=== PATIENT | female | born 1950 | race Caucasian/White ===

== ENCOUNTER 2017-02-23 23:54 | Emergency (ER) | payer OTHER ==
[~2017-02-23] VITALS: Ht 170.2 cm; Wt 62.0 kg
[~2017-02-23 23:54] MED LIST: OMPR20CCR PO
[2017-02-24 00:05] VITALS: BP 130/73; PULSE 85; RESP 16; TEMP 97.6; O2SAT 100
[2017-02-24] MEDS ORDERED: ONDANSETRON HCL 4 MG/2 ML VIAL ONE (00:07)
[2017-02-24] MEDS ORDERED: SODIUM CHLOR 0.9% 1000 ML INJ 1,000 ML IV SCH (00:44)
[2017-02-24] MEDS ORDERED: PANTOPRAZOLE SODIUM 40 MG VIAL IVP ONE (00:45)
[2017-02-24] MEDS ORDERED: MORPHINE SULFATE 4 MG/ML INJ IV PUSH ONE (00:45)
[2017-02-24] MEDS ORDERED: METOCLOPRAMIDE HCL 10 MG/2 ML VIAL IV PUSH ONE (00:45)
[2017-02-24] MEDS ORDERED: diphenhydrAMINE HCL 50 MG/ML VIAL IV PUSH ONE (00:45)
--- NOTE | 2017-02-24 00:51 | PD ---
HPI Chief Complaint: Abdominal Pain Time Seen by Provider: 00:39 Travel History International Travel<30 days: No Contact w/Intl Traveler<30days: No Traveled to known affect area: No History of Present Illness HPI 66-year-old female complains of abdominal pain with severe nausea. Patient states that she has history of common bile duct obstruction that required ERCP done by Dr. villela and 2 years ago. Patient has been doing well since then. Patient states that she ate fried shrimp tonight and started having severe abdominal cramping and nausea. Patient denies any vomiting or diarrhea. Patient denies any fever chills. Patient denies any chest pain or shortness of breath. Patient states that abdominal cramping mostly localized on the upper abdomen. Patient denies any pain radiation. On a scale of 1-10 the pain is a 3. PFSH Past Medical History Cancer: No Cardiovascular Problems: No Diabetes: No Diminished Hearing: No Endocrine: No Glaucoma: No Genitourinary: No Hepatitis: No Hiatal Hernia: No Hypertension: No Immune Disorder: No Medical other: Yes (back problems) Musculoskeletal: Yes Neurologic: No Psychiatric: No Reproductive: No Respiratory: No Thyroid Disease: No Tetanus Vaccination: Unknown Influenza Vaccination: No Menopausal: Yes Past Surgical History Oral Surgery: Yes (wisdom teeth removed) Other Surgery: Yes Social History Alcohol Use: Yes (occ wine) Tobacco Use: No Substance Use: No Allergies-Medications (Allergen,Severity, Reaction): Coded Allergies: No Known Allergies (Unverified , 02/24/17) Reported Meds & Prescriptions Reported Meds & Active Scripts Active Reported Prilosec 20 Mg Cap (Omeprazole) 20 Mg Capcr 20 Mg PO DAILY Review of Systems General / Constitutional: No: Fever Eyes: No: Visual changes HENT: No: Headaches Cardiovascular: No: Chest Pain or Discomfort Respiratory: No: Shortness of Breath Gastrointestinal: Positive: Nausea, Abdominal Pain Genitourinary: No: Dysuria Musculoskeletal: No: Pain Skin: No Rash Neurologic: No: Weakness Psychiatric: No: Depression Endocrine: No: Polydipsia Hematologic/Lymphatic: No: Easy Bruising Physical Exam Narrative GENERAL: Well-nourished, well-developed patient. SKIN: Focused skin assessment warm/dry. HEAD: Normocephalic. EYES: No scleral icterus. No injection or drainage. NECK: Supple, trachea midline. No JVD or lymphadenopathy. CARDIOVASCULAR: Regular rate and rhythm without murmurs, gallops, or rubs. RESPIRATORY: Breath sounds equal bilaterally. No accessory muscle use. GASTROINTESTINAL: Abdomen soft, nondistended. Patient has mild diffuse tenderness over the upper abdomen, epigastric area. No rebound tenderness. No mass. MUSCULOSKELETAL: No cyanosis, or edema. BACK: Nontender without obvious deformity. No CVA tenderness. Neurologic exam normal. Data Data Last Documented VS Vital Signs Date Time Temp Pulse Resp B/P Pulse Ox O2 Delivery O2 Flow Rate FiO2 02/24/17 00:08 16 02/24/17 00:05 97.6 85 130/73 100 Orders Ondansetron Inj (Zofran Inj) (02/24/17 00:07) Complete Blood Count With Diff (02/24/17 00:44) Comprehensive Metabolic Panel (02/24/17 00:44) Lipase (02/24/17 00:44) Prothrombin Time / Inr (Pt) (02/24/17 00:44) Act Partial Throm Time (Ptt) (02/24/17 00:44) Urinalysis - C+S If Indicated (02/24/17 00:44) Ct Abd/Pel W Iv Contrast(Rout) (02/24/17 00:44) Iv Access Insert/Monitor (02/24/17 00:44) Ecg Monitoring (02/24/17 00:44) Oximetry (02/24/17 00:44) Morphine Inj (Morphine Inj) (02/24/17 00:45) Pantoprazole Inj (Protonix Inj) (02/24/17 00:45) Sodium Chlor 0.9% 1000 Ml Inj (Ns 1000 M (02/24/17 00:44) Metoclopramide Inj (Reglan Inj) (02/24/17 00:45) Diphenhydramine Inj (Benadryl Inj) (02/24/17 00:45) Iohexol 350 Inj (Omnipaque 350 Inj) (02/24/17 02:57) Labs Laboratory Tests Test 02/24/17 00:55 White Blood Count 7.2 TH/MM3 Red Blood Count 3.93 MIL/MM3 Hemoglobin 12.6 GM/DL Hematocrit 36.0 % Mean Corpuscular Volume 91.6 FL Mean Corpuscular Hemoglobin 32.1 PG Mean Corpuscular Hemoglobin 35.1 % Concent Red Cell Distribution Width 14.1 % Platelet Count 261 TH/MM3 Mean Platelet Volume 8.9 FL Neutrophils (%) (Auto) 52.5 % Lymphocytes (%) (Auto) 35.0 % Monocytes (%) (Auto) 11.5 % Eosinophils (%) (Auto) 0.6 % Basophils (%) (Auto) 0.4 % Neutrophils # (Auto) 3.8 TH/MM3 Lymphocytes # (Auto) 2.5 TH/MM3 Monocytes # (Auto) 0.8 TH/MM3 Eosinophils # (Auto) 0.0 TH/MM3 Basophils # (Auto) 0.0 TH/MM3 CBC Comment DIFF FINAL Differential Comment Prothrombin Time 10.7 SEC Prothromb Time International 1.0 RATIO Ratio Activated Partial 24.0 SEC Thromboplast Time Sodium Level 138 MEQ/L Potassium Level 3.2 MEQ/L Chloride Level 102 MEQ/L Carbon Dioxide Level 21.6 MEQ/L Anion Gap 14 MEQ/L Blood Urea Nitrogen 14 MG/DL Creatinine 0.85 MG/DL Estimat Glomerular Filtration 67 ML/MIN Rate Random Glucose 121 MG/DL Calcium Level 9.5 MG/DL Total Bilirubin 0.4 MG/DL Aspartate Amino Transf 120 U/L (AST/SGOT) Alanine Aminotransferase 70 U/L (ALT/SGPT) Alkaline Phosphatase 76 U/L Total Protein 7.1 GM/DL Albumin 4.2 GM/DL Lipase 117 U/L [facility] Medical Decision Making Medical Screen Exam Complete: Yes Emergency Medical Condition: Yes Interpretation(s) Last Impressions Abdomen/Pelvis CT 02/24/17 0044 Signed Impressions: Service Date/Time: Friday, February 24, 2017 02:53 - CONCLUSION: Extra hepatic biliary tree dilatation, unchanged. Unremarkable study. The appendix is normal. Mati Rod MD 3:40 AM. CBC within normal limit. Potassium 3.2. AST 120. ALT 70. Differential Diagnosis Differential diagnosis including gastritis, PUD, pink otitis, cholecystitis, colitis, UTI, pyelonephritis, nephrolithiasis. Narrative Course 66-year-old female with upper abdominal pain after eating a greasy meal. History of common bile duct obstruction that required ERCP in the past. Normal saline solution 1 25 cc an hour. Protonix 40 milligram IV. Zofran 4 mg IV. Reglan 10 mg IV. Benadryl 25 mg IV. Morphine 2 mg IV. Diagnosis Primary Impression: Abdominal pain Qualified Code: R10.9 - Abdominal pain, unspecified location Additional Impression: Gastroenteritis Patient Instructions: General Instructions Additional Instructions: Take medications as needed. Follow-up with personal physician and GI specialist. Return if worse. Med/Other Pt SpecificInfo: Prescription(s) given Scripts Promethazine (Phenergan)25 Mg Tab25 Mg PO Q6H PRN (Nausea/Vomiting) #10 TAB Ref 0 Prov:Mynor Rangel MD 02/24/17 Ondansetron Odt (Zofran Odt)4 Mg Tab4 Mg SL Q6HR PRN (Nausea/Vomiting) #10 TAB Prov:Mynor Rangel MD 02/24/17 Pantoprazole (Protonix)20 Mg Tab20 Mg PO DAILY #30 TAB Prov:Mynor Rangel MD 02/24/17 Disposition: 01 DISCHARGE HOME Condition: Stable Mynor Rangel MD Feb 24, 2017 00:51
[2017-02-24 01:03] LABS: AUTOMATED NEUTROPHIL # 3.8 TH/MM3 (1.8-7.7); BASOPHIL % 0.4 % (0.0-2.0); EOSINOPHIL % 0.6 % (0.0-4.0); HEMO FLAGS DIFF FINAL; LYMPHOCYTE # 2.5 TH/MM3 (1.0-4.8); MEAN CELL VOLUME 91.6 FL (80.0-100.0); MEAN CORPUSCULAR HEMOGLOBIN 32.1 PG (27.0-34.0); MEAN CORPUSCULAR HGB CONC 35.1 % (32.0-36.0); MONO % 11.5 % (0.0-8.0); NEUT % 52.5 % (16.0-70.0); PLATELET COUNT 261 TH/MM3 (150-450); RED BLOOD COUNT 3.93 MIL/MM3 (4.00-5.30); RED CELL DISTRIBUTION WIDTH 14.1 % (11.6-17.2); WHITE BLOOD COUNT 7.2 TH/MM3 (4.0-11.0)
[2017-02-24 01:16] LABS: PROTHROMBIN TIME - PATIENT 10.7 SEC (9.8-11.6)
[2017-02-24 01:35] LABS: ALKALINE PHOSPHATASE 76 U/L (45-117); TOTAL BILIRUBIN ADULT 0.4 MG/DL (0.2-1.0)
[2017-02-24 01:54] LABS: ALT (GPT) 70 U/L (10-53); ANION GAP 14 MEQ/L (5-15); AST (GOT) 120 U/L (15-37); BICARBONATE 21.6 MEQ/L (21.0-32.0); BLOOD UREA NITROGEN 14 MG/DL (7-18); CHLORIDE 102 MEQ/L (98-107); GLOMERULAR FILTRATION RATE 67 ML/MIN (>89); POTASSIUM 3.2 MEQ/L (3.5-5.1); SODIUM (NA) 138 MEQ/L (136-145)
[2017-02-24] MEDS ORDERED: IOHEXOL 350 MG/ML 10 ML VIAL (for RAD DIAG) IV ONE (02:57)
--- NOTE | 2017-02-24 03:25 | RADRPT ---
EXAM DATE/TIME: 02/24/2017 02:53 [facility] COMPARISON: CT ABDOMEN & PELVIS W CONTRAST, April 23, 2013, 6:57. INDICATIONS : Abdominal pain. IV CONTRAST: 96 cc Omnipaque 350 (iohexol) IV ORAL CONTRAST: No oral contrast ingested. RADIATION DOSE: 6.05 CTDIvol (mGy) MEDICAL HISTORY : Biliary duct blockage. Gallstones. SURGICAL HISTORY : None. ENCOUNTER: Initial ACUITY: 1 day PAIN SCALE: 3/10 LOCATION: Bilateral upper quadrant TECHNIQUE: Volumetric scanning of the abdomen and pelvis was performed. Using automated exposure control and ad justment of the mA and/or kV according to patient size, radiation dose was kept as low as reasonably achievable to obtain optimal diagnostic quality images. FINDINGS: LOWER LUNGS: The visualized lower lungs are clear. LIVER: Homogeneous density without lesion. There is continued dilatation of the extrahepatic biliary tree. No calcified gallstones. SPLEEN: Normal size without lesion. PANCREAS: Within normal limits. KIDNEYS: Normal in size and shape. There is no mass, stone or hydronephrosis. ADRENAL GLANDS: Within normal limits. VASCULAR: There is no aortic aneurysm. BOWEL/MESENTERY: The stomach, small bowel, and colon demonstrate no acute abnormality. There is no free intraperitone al air or fluid. ABDOMINAL WALL: Within normal limits. RETROPERITONEUM: There is no lymphadenopathy. BLADDER: No wall thickening or mass. REPRODUCTIVE: Within normal limits. INGUINAL: There is no lymphadenopathy or hernia. MUSCULOSKELETAL: Within normal limits for patient age. CONCLUSION: Extra hepatic biliary tree dilatation, unchanged. Unremarkable study. The appendix is normal. Mati Rod MD on February 24, 2017 at 3:23 Board Certified Radiologist. This report was verified electronically.
[2017-02-24] MEDS ORDERED: PANT20 PO (03:49)
[2017-02-24] MEDS ORDERED: PROM25TA5 PO (03:49)
[2017-02-24] MEDS ORDERED: ZOFR4TAB3 SL (03:49)
[2017-02-24 04:37] LABS: BACTERIA, URINE RARE /hpf; BLOOD, URINE NEG (NEG); COMMENT (UR) CULT NOT INDICATED; CULTURE IF INDICATED CULT NOT INDICATED; GLUCOSE,URINE NEG (NEG); KETONE, URINE 10 mg/dL (NEG); NITRITE,URINE NEG (NEG); SQUAMOUS EPITHELIAL CELL URINE <1 /hpf (0-5); URINE COLOR YELLOW (YELLW/STRAW)
== END 2017-02-24 05:08 | disposition home or self-care (01) ==
LOC: NEPC 23:54
DX: K52.9 Noninfective gastroenteritis and colitis, unspecified (principal)
CPT/HCPCS: 74177; 80053; 81001; 83690; 85025; 85610; 85730; 96374; 96375; 99284; C9113; J1200; J2270; J2405; J2765; J7030; Q9967

== ENCOUNTER 2017-04-01 17:05 | Emergency (ER) | payer MEDICARE, OTHER ==
[~2017-04-01] VITALS: Ht 165.1 cm; Wt 60.0 kg
[~2017-04-01 17:05] MED LIST changes: +PANT20 PO; +PROM25TA5 PO; +ZOFR4TAB3 SL
[2017-04-01 17:08] VITALS: BP 127/69; PULSE 88; RESP 24; TEMP 97.5; O2SAT 99
== END 2017-04-01 18:26 | disposition left against medical advice (07) ==
LOC: NED 17:05
DX: R10.9 Unspecified abdominal pain (principal); Z53.21 Procedure and treatment not carried out due to patient leaving prior to being seen by health care provider

== ENCOUNTER 2017-07-03 02:01 | Inpatient (IN) | payer MEDICARE ==
[~2017-07-03] VITALS: Ht 165.1 cm; Wt 56.0 kg
[2017-07-03] VITALS (11 sets, daily range): BP systolic 104–129; BP diastolic 59–67; PULSE 74–93; RESP 13–23; TEMP 96.9–98.6; O2SAT 98–100
[2017-07-03] MEDS ORDERED: HYDR-3516 PO (02:10)
[2017-07-03] MEDS ORDERED: SODIUM CHLOR 0.9% 1000 ML INJ 1,000 ML IV SCH (03:22)
--- NOTE | 2017-07-03 03:28 | PD ---
HPI Chief Complaint: Abdominal Pain Time Seen by Provider: 03:14 Travel History International Travel<30 days: No Contact w/Intl Traveler<30days: No Traveled to known affect area: No History of Present Illness HPI 66-year-old female complains of abdominal pain. Patient status post cholecystectomy a week ago. Patient has been doing well after surgery. Patient states that she was bending over and getting up and started having severe ripping pain on the right upper quadrant of the abdomen. Patient denies any pain radiation. Patient denies any nausea vomiting diarrhea. Patient denies any fever chills. Patient denies any dysuria or frequency. PFSH Past Medical History Cancer: No Cardiovascular Problems: No Diabetes: No Diminished Hearing: No Endocrine: No Glaucoma: No Genitourinary: No Hepatitis: No Hiatal Hernia: No Hypertension: No Immune Disorder: No Medical other: Yes (back problems) Musculoskeletal: Yes Neurologic: No Psychiatric: No Reproductive: No Respiratory: No Thyroid Disease: No Tetanus Vaccination: > 5 Years Influenza Vaccination: No Menopausal: Yes Past Surgical History Cholecystectomy: Yes Oral Surgery: Yes (wisdom teeth removed) Other Surgery: Yes Social History Alcohol Use: Yes (occ wine) Tobacco Use: No Substance Use: No Allergies-Medications (Allergen,Severity, Reaction): Coded Allergies: morphine (Verified Allergy, Severe, 07/03/17) HALLUCINATE Reported Meds & Prescriptions Reported Meds & Active Scripts Active Reported Hydrocodone-Acetaminophen 5-325 mg Tab 1 Tab PO Q4H PRN Review of Systems General / Constitutional: No: Fever Eyes: No: Visual changes HENT: No: Headaches Cardiovascular: No: Chest Pain or Discomfort Respiratory: No: Shortness of Breath Gastrointestinal: Positive: Abdominal Pain Genitourinary: No: Dysuria Musculoskeletal: No: Pain Skin: No Rash Neurologic: No: Weakness Psychiatric: No: Depression Endocrine: No: Polydipsia Hematologic/Lymphatic: No: Easy Bruising Physical Exam Narrative GENERAL: Well-nourished, well-developed patient. SKIN: Focused skin assessment warm/dry. HEAD: Normocephalic. EYES: No scleral icterus. No injection or drainage. NECK: Supple, trachea midline. No JVD or lymphadenopathy. CARDIOVASCULAR: Regular rate and rhythm without murmurs, gallops, or rubs. RESPIRATORY: Breath sounds equal bilaterally. No accessory muscle use. GASTROINTESTINAL: Abdomen soft, nondistended. Patient has moderate tenderness on palpation right upper quadrant and right mid abdomen area. No rebound tenderness. No mass. MUSCULOSKELETAL: No cyanosis, or edema. BACK: Nontender without obvious deformity. No CVA tenderness. Neurologic exam normal. Data Data Last Documented VS Vital Signs Date Time Temp Pulse Resp B/P (MAP) Pulse Ox O2 Delivery O2 Flow Rate FiO2 07/03/17 03:36 76 16 99 Room Air 07/03/17 02:07 97.8 07/03/17 02:03 118/61 (80) Orders Orders Complete Blood Count With Diff (07/03/17 03:22) Comprehensive Metabolic Panel (07/03/17 03:22) Lipase (07/03/17 03:22) Prothrombin Time / Inr (Pt) (07/03/17 03:22) Act Partial Throm Time (Ptt) (07/03/17 03:22) Urinalysis - C+S If Indicated (07/03/17 03:22) Ct Abd/Pel W Iv Contrast(Rout) (07/03/17 03:22) Iv Access Insert/Monitor (07/03/17 03:22) Ecg Monitoring (07/03/17 03:22) Oximetry (07/03/17 03:22) Ondansetron Inj (Zofran Inj) (07/03/17 03:30) Sodium Chlor 0.9% 1000 Ml Inj (Ns 1000 M (07/03/17 03:22) Hydromorphone Pf Inj (Dilaudid Pf Inj) (07/03/17 03:30) Iohexol 350 Inj (Omnipaque 350 Inj) (07/03/17 04:51) Labs Laboratory Tests Test 07/03/17 03:20 White Blood Count 23.2 TH/MM3 Red Blood Count 4.15 MIL/MM3 Hemoglobin 12.8 GM/DL Hematocrit 40.0 % Mean Corpuscular Volume 96.4 FL Mean Corpuscular Hemoglobin 30.9 PG Mean Corpuscular Hemoglobin Concent 32.0 % Red Cell Distribution Width 14.5 % Platelet Count 303 TH/MM3 Mean Platelet Volume 7.9 FL Neutrophils (%) (Auto) 89.7 % Lymphocytes (%) (Auto) 2.3 % Monocytes (%) (Auto) 7.9 % Eosinophils (%) (Auto) 0.0 % Basophils (%) (Auto) 0.1 % Neutrophils # (Auto) 20.8 TH/MM3 Lymphocytes # (Auto) 0.5 TH/MM3 Monocytes # (Auto) 1.8 TH/MM3 Eosinophils # (Auto) 0.0 TH/MM3 Basophils # (Auto) 0.0 TH/MM3 CBC Comment DIFF FINAL Differential Comment Prothrombin Time 10.3 SEC Prothromb Time International Ratio 0.9 RATIO Activated Partial Thromboplast Time 24.9 SEC Urine Color YELLOW Urine Turbidity CLEAR Urine pH 7.5 Urine Specific [place] 1.019 Urine Protein TRACE mg/dL Urine Glucose (UA) NEG mg/dL Urine Ketones NEG mg/dL Urine Occult Blood NEG Urine Nitrite NEG Urine Bilirubin NEG Urine Urobilinogen LESS THAN 2.0 MG/DL Urine Leukocyte Esterase NEG Urine RBC 2 /hpf Urine WBC 1 /hpf Urine Squamous Epithelial Cells <1 /hpf Urine Mucus FEW /lpf Microscopic Urinalysis Comment CULT NOT INDICATED Blood Urea Nitrogen 10 MG/DL Creatinine 0.77 MG/DL Random Glucose 108 MG/DL Total Protein 7.3 GM/DL Albumin 3.6 GM/DL Calcium Level 8.9 MG/DL Alkaline Phosphatase 77 U/L Aspartate Amino Transf (AST/SGOT) 41 U/L Alanine Aminotransferase (ALT/SGPT) 41 U/L Total Bilirubin 0.5 MG/DL Sodium Level 134 MEQ/L Potassium Level 3.7 MEQ/L Chloride Level 98 MEQ/L Carbon Dioxide Level 27.4 MEQ/L Anion Gap 9 MEQ/L Estimat Glomerular Filtration Rate 75 ML/MIN Lipase 74 U/L [facility] Medical Decision Making Medical Screen Exam Complete: Yes Emergency Medical Condition: Yes Interpretation(s) Last Impressions Abdomen/Pelvis CT 07/03/17 0322 Signed Impressions: Service Date/Time: Monday, July 03, 2017 04:44 - CONCLUSION: The patient had a cholecystectomy with a few surgical clips in place. Within the gallbladder fossa there is a 5.2 x 3.4 cm fluid collection with a few tiny locules of air suspicious for either a seroma or possibly a biloma. Some of the fluid dissects inferiorly extending to the right kidney. Biliary stent in good position although there still moderate distention of the intrahepatic biliary tree, new since February. Mati Rod MD 6:31 AM. CBC WBC 23.2. 89 neutrophil. Sodium 134. UA is negative. Differential Diagnosis Differential diagnosis including musculoskeletal, hernia, colitis, nephrolithiasis, pyelonephritis. Narrative Course 66-year-old female with right upper quadrant and mid abdominal pain. Status post cholecystectomy a week ago. Diagnosis Primary Impression: Abdominal pain Qualified Codes: R10.11 - Right upper quadrant pain Mynor Rangel MD Jul 03, 2017 03:28
[2017-07-03] MEDS ORDERED: HYDROmorphone HCL PF 1 MG/ML VIAL IVS ONE (03:30)
[2017-07-03] MEDS ORDERED: ONDANSETRON HCL 4 MG/2 ML VIAL IVP ONE (03:30)
[2017-07-03 03:54] LABS: BLOOD, URINE NEG (NEG); COMMENT (UR) CULT NOT INDICATED; CULTURE IF INDICATED CULT NOT INDICATED; GLUCOSE,URINE NEG (NEG); KETONE, URINE NEG (NEG); MUCUS URINE FEW /lpf (OCC); NITRITE,URINE NEG (NEG); PH, URINE 7.5 (5.0-8.5); SQUAMOUS EPITHELIAL CELL URINE <1 /hpf (0-5); URINE COLOR YELLOW (YELLW/STRAW)
[2017-07-03 03:57] LABS: AUTOMATED NEUTROPHIL # 20.8 TH/MM3 (1.8-7.7); BASOPHIL % 0.1 % (0.0-2.0); HEMO FLAGS DIFF FINAL; LYMPH % 2.3 % (9.0-44.0); LYMPHOCYTE # 0.5 TH/MM3 (1.0-4.8); MEAN CELL VOLUME 96.4 FL (80.0-100.0); MEAN CORPUSCULAR HEMOGLOBIN 30.9 PG (27.0-34.0); MONO % 7.9 % (0.0-8.0); NEUT % 89.7 % (16.0-70.0); PLATELET COUNT 303 TH/MM3 (150-450); RED BLOOD COUNT 4.15 MIL/MM3 (4.00-5.30); RED CELL DISTRIBUTION WIDTH 14.5 % (11.6-17.2); WHITE BLOOD COUNT 23.2 TH/MM3 (4.0-11.0)
[2017-07-03 04:12] LABS: ALT (GPT) 41 U/L (10-53); ANION GAP 9 MEQ/L (5-15); APTT (PATIENT) 24.9 SEC (24.3-30.1); AST (GOT) 41 U/L (15-37); BICARBONATE 27.4 MEQ/L (21.0-32.0); BLOOD UREA NITROGEN 10 MG/DL (7-18); CHLORIDE 98 MEQ/L (98-107); GLOMERULAR FILTRATION RATE 75 ML/MIN (>89); INTERNATIONAL NORMALIZED RATIO 0.9 RATIO; POTASSIUM 3.7 MEQ/L (3.5-5.1); PROTHROMBIN TIME - PATIENT 10.3 SEC (9.8-11.6); SODIUM (NA) 134 MEQ/L (136-145)
[2017-07-03 04:13] LABS: ALKALINE PHOSPHATASE 77 U/L (45-117); TOTAL BILIRUBIN ADULT 0.5 MG/DL (0.2-1.0)
[2017-07-03] MEDS ORDERED: IOHEXOL 350 MG/ML 10 ML VIAL (for RAD DIAG) IVCONTRAST ONE (04:51)
--- NOTE | 2017-07-03 05:00 | RADRPT ---
EXAM DATE/TIME: 07/03/2017 04:44 [facility] COMPARISON: CT ABDOMEN & PELVIS W CONTRAST, February 24, 2017, 2:53. INDICATIONS : Right upper quadrant pain post cholecystectomy one week ago. IV CONTRAST: 92 cc Omnipaque 350 (iohexol) IV ORAL CONTRAST: No oral contrast ingested. RADIATION DOSE: 5.78 CTDIvol (mGy) MEDICAL HISTORY : Biliary duct blockage. SURGICAL HISTORY : Cholecystectomy. ENCOUNTER: Initial ACUITY: 1 day PAIN SCALE: 9/10 LOCATION: Right upper quadrant TECHNIQUE: Volumetric scanning of the abdomen and pelvis was performed. Using automated exposure control and ad justment of the mA and/or kV according to patient size, radiation dose was kept as low as reasonably achievable to obtain optimal diagnostic quality images. DICOM format image data is available electro nically for review and comparison. FINDINGS: LOWER LUNGS: The visualized lower lungs are clear. LIVER: Homogeneous density without lesion. There is moderate intrahepatic dilation of the biliary tree. Cli ps suggest cholecystectomy. Within the gallbladder fossa is an elongated fluid collection measuring 5.2 x 3.4 cm with a few tiny locules of air possible residual seroma or biloma. Some of the fluid dis sects inferiorly and posteriorly partially surrounding the right kidney. There is a stent within the biliary tree beginning in the common bile duct and extending to the second portion of the duodenum. SPLEEN: Normal size without lesion. PANCREAS: Within normal limits. KIDNEYS: Normal in size and shape. There is no mass, stone or hydronephrosis. ADRENAL GLANDS: Within normal limits. VASCULAR: There is no aortic aneurysm. BOWEL/MESENTERY: The stomach, small bowel, and colon demonstrate no acute abnormality. There is no free intraperitone al air or fluid. ABDOMINAL WALL: Within normal limits. RETROPERITONEUM: There is no lymphadenopathy. BLADDER: No wall thickening or mass. REPRODUCTIVE: Within normal limits. INGUINAL: There is no lymphadenopathy or hernia. MUSCULOSKELETAL: Within normal limits for patient age. CONCLUSION: The patient had a cholecystectomy with a few surgical clips in place. Within the gallbladder fossa th ere is a 5.2 x 3.4 cm fluid collection with a few tiny locules of air suspicious for either a seroma or possibly a biloma. Some of the fluid dissects inferiorly extending to the right kidney. Biliary st ent in good position although there still moderate distention of the intrahepatic biliary tree, [facility] February. Mati Rod MD on July 03, 2017 at 4:55 Board Certified Radiologist. This report was verified electronically.
[2017-07-03] MEDS ORDERED: ACETAMINOPHEN 1000 MG/100 ML VIAL IV ONE (07:30)
[2017-07-03] MEDS ORDERED: ONDANSETRON HCL 4 MG/2 ML VIAL IV PUSH ONE (07:30)
[2017-07-03] MEDS ORDERED: Post-op Orders (for Pharmacy) MISC XX ONE (13:15)
[2017-07-03] MEDS ORDERED: SODIUM CHLORIDE 0.9% FLUSH 5 ML FLUSH IVF PRN (13:15)
[2017-07-03] MEDS ORDERED: HYDROmorphone HCL PF 1 MG/ML VIAL IV PRN (13:15)
[2017-07-03] MEDS ORDERED: NALOXONE HCL 0.4 MG/ML AMP IV PRN (13:15)
[2017-07-03] MEDS ORDERED: ACETAMINOPHEN/HYDROcodone 325 MG/5 MG TAB PO PRN (13:15)
--- NOTE | 2017-07-03 13:34 | PD ---
Data Data Last Documented VS Vital Signs Date Time Temp Pulse Resp B/P (MAP) Pulse Ox O2 Delivery O2 Flow Rate FiO2 07/03/17 11:03 83 23 111/59 (76) 99 Nasal Cannula 2.00 07/03/17 06:58 98.6 Orders Orders Complete Blood Count With Diff (07/03/17 03:22) Comprehensive Metabolic Panel (07/03/17 03:22) Lipase (07/03/17 03:22) Prothrombin Time / Inr (Pt) (07/03/17 03:22) Act Partial Throm Time (Ptt) (07/03/17 03:22) Urinalysis - C+S If Indicated (07/03/17 03:22) Ct Abd/Pel W Iv Contrast(Rout) (07/03/17 03:22) Iv Access Insert/Monitor (07/03/17 03:22) Ecg Monitoring (07/03/17 03:22) Oximetry (07/03/17 03:22) Ondansetron Inj (Zofran Inj) (07/03/17 03:30) Sodium Chlor 0.9% 1000 Ml Inj (Ns 1000 M (07/03/17 03:22) Hydromorphone Pf Inj (Dilaudid Pf Inj) (07/03/17 03:30) Iohexol 350 Inj (Omnipaque 350 Inj) (07/03/17 04:51) Acetaminophen 1000 Mg/100 Ml (Ofirmev 10 (07/03/17 07:30) Ondansetron Inj (Zofran Inj) (07/03/17 07:30) Biliary Quant (W/O Cck) (07/03/17 06:39) Admit To Inpatient (07/03/17 13:05) Code Status (07/03/17 13:05) Vital Signs (Adult) WILMER.Q4H (07/03/17 13:05) Activity Oob Ad [place] (07/03/17 13:05) Discontinue Iv (07/03/17 13:05) Diet Regular Basic (07/03/17 Lunch) Lactated Ringer's 1000 Ml Inj (Lr 1000 M (07/03/17 13:05) Sodium Chloride 0.9% Flush (Ns Flush) (07/03/17 13:15) Sodium Chloride 0.9% Flush (Ns Flush) (07/03/17 21:00) Ketorolac Inj (Toradol Inj) (07/03/17 13:15) Acetamin-Hydrocod 325-5 Mg ([place] 5-325 (07/03/17 13:15) Complete Blood Count With Diff (07/04/17 06:00) Acetamin-Hydrocod 325-5 Mg ([place] 5-325 (07/03/17 13:15) Hydromorphone Pf Inj (Dilaudid Pf Inj) (07/03/17 13:15) Ondansetron Inj (Zofran Inj) (07/03/17 13:15) Post-Op Orders (For Pharmacy) (Post-Op O (07/03/17 13:15) Do Not Adm Any Anticoagulants (07/03/17 13:15) Naloxone Inj (Narcan Inj) (07/03/17 13:15) Inpatient Certification (07/03/17 ) Hepatic Functional Panel (07/04/17 06:00) Levofloxacin (Levaquin) (07/04/17 09:00) Consult Gastroenterology (07/03/17 ) Admit Order (Ed Use Only) (07/03/17 ) Labs Laboratory Tests Test 07/03/17 03:20 White Blood Count 23.2 TH/MM3 Red Blood Count 4.15 MIL/MM3 Hemoglobin 12.8 GM/DL Hematocrit 40.0 % Mean Corpuscular Volume 96.4 FL Mean Corpuscular Hemoglobin 30.9 PG Mean Corpuscular Hemoglobin Concent 32.0 % Red Cell Distribution Width 14.5 % Platelet Count 303 TH/MM3 Mean Platelet Volume 7.9 FL Neutrophils (%) (Auto) 89.7 % Lymphocytes (%) (Auto) 2.3 % Monocytes (%) (Auto) 7.9 % Eosinophils (%) (Auto) 0.0 % Basophils (%) (Auto) 0.1 % Neutrophils # (Auto) 20.8 TH/MM3 Lymphocytes # (Auto) 0.5 TH/MM3 Monocytes # (Auto) 1.8 TH/MM3 Eosinophils # (Auto) 0.0 TH/MM3 Basophils # (Auto) 0.0 TH/MM3 CBC Comment DIFF FINAL Differential Comment Prothrombin Time 10.3 SEC Prothromb Time International Ratio 0.9 RATIO Activated Partial Thromboplast Time 24.9 SEC Urine Color YELLOW Urine Turbidity CLEAR Urine pH 7.5 Urine Specific [place] 1.019 Urine Protein TRACE mg/dL Urine Glucose (UA) NEG mg/dL Urine Ketones NEG mg/dL Urine Occult Blood NEG Urine Nitrite NEG Urine Bilirubin NEG Urine Urobilinogen LESS THAN 2.0 MG/DL Urine Leukocyte Esterase NEG Urine RBC 2 /hpf Urine WBC 1 /hpf Urine Squamous Epithelial Cells <1 /hpf Urine Mucus FEW /lpf Microscopic Urinalysis Comment CULT NOT INDICATED Blood Urea Nitrogen 10 MG/DL Creatinine 0.77 MG/DL Random Glucose 108 MG/DL Total Protein 7.3 GM/DL Albumin 3.6 GM/DL Calcium Level 8.9 MG/DL Alkaline Phosphatase 77 U/L Aspartate Amino Transf (AST/SGOT) 41 U/L Alanine Aminotransferase (ALT/SGPT) 41 U/L Total Bilirubin 0.5 MG/DL Sodium Level 134 MEQ/L Potassium Level 3.7 MEQ/L Chloride Level 98 MEQ/L Carbon Dioxide Level 27.4 MEQ/L Anion Gap 9 MEQ/L Estimat Glomerular Filtration Rate 75 ML/MIN Lipase 74 U/L [facility] Supervised Visit with LAURIE: Yes Narrative Course 66 year-old woman with recent cholecystectomy dark in color, with fluid collection around the gallbladder pain and vomiting. Y counseled that elevated. Seen by Dr. taylor here after consult placed. I spoke with Dr. Estrada overnight would requested a hiatus scan. Plan is for admission for further evaluation and treatment. Diagnosis Primary Impression: Abdominal pain Qualified Codes: R10.11 - Right upper quadrant pain Mati Bhatti MD Jul 03, 2017 13:34
--- NOTE | 2017-07-03 13:41 | MH ---
cc: PARAM TEMPLETON M.D. DATE OF ADMISSION: 07/03/2017 REASON FOR ADMISSION: Right upper quadrant pain status post laparoscopic cholecystectomy. HISTORY OF PRESENT ILLNESS: Ms. Knight is a very pleasant 66-year-old female who underwent a laparoscopic cholecystectomy by Dr. Aravind Phipps one week ago at [facility]. Apparently she had had a common duct stone and had a common duct stone extraction and stent placement by Dr. Cervantes prior to this. According Dr. Phipps, she had an uneventful laparoscopic cholecystectomy last Wednesday. The patient reports initially she was doing well. She had some postoperative soreness, but she stated by Wednesday that she was feeling pretty good and getting around the house without difficulty. She reports that on Wednesday she was getting up and bent over and felt a severe pain in her right upper quadrant. The pain persisted and she became concerned. She tried to go to bed but the pain persisted and she elected to call 07-09-. She was brought to [facility]. She was seen and evaluated by Dr. Mynor Rangel. Dr. Rangel sent her for a CT scan of the abdomen and pelvis due to the fact that she had an elevated white count and this showed postoperative fluid collection in the gallbladder fossa. The patient denies any fever or chills. She reports some mild right upper quadrant abdominal pain after she has been medicated in the emergency department. She reports she is moving her bowels. PAST MEDICAL HISTORY: Her past medical history is essentially unremarkable. PAST SURGICAL HISTORY: 1. Common bile duct stent placed for stones. 2. A laparoscopic cholecystectomy a week ago. 3. She also reports she had her wisdom teeth removed. SOCIAL HISTORY: She does not smoke cigarettes. She rarely drinks alcohol, mainly wine. ALLERGIES: SHE REPORTS THAT MORPHINE MAKES HER HALLUCINATE AND FEEL VERY WEIRD. SHE DENIES ANY ANTIBIOTIC ALLERGIES. FAMILY HISTORY: Her family history is noncontributory. REVIEW OF SYSTEMS: Please see the history of present illness. PHYSICAL EXAMINATION: VITAL SIGNS: Temperature is 98, pulse is 80, blood pressure is 110/70, respiratory rate of 20. GENERAL: This is a pleasant middle-aged female sitting in the emergency department in no apparent distress. HEAD, EYES, EARS, NOSE, THROAT: Pupils equal, round and reactive to light. Extraocular movements are intact. The oropharynx is clear and moist. NECK: The neck is supple. No masses. LUNGS: Clear to auscultation bilaterally. HEART: S1 and S2. No murmur. ABDOMEN: Soft. Tender in the right upper quadrant. No rebound. No guarding. No abdominal masses. All incisions are healing well. NEUROLOGIC: She is alert and oriented x3. EXTREMITIES: Free range of motion x4. LABS: White blood cell count is 23.2 with 89% neutrophils, hemoglobin 12, platelet count is 303,000. Electrolytes are within normal limits. Urinalysis is negative. IMAGING STUDIES: CT scan of the abdomen and pelvis shows a postoperative seroma in the hepatic fossa. HIDA scan is pending. IMPRESSION: Right upper quadrant pain status post laparoscopic cholecystectomy. PLAN: At this point, I advised the patient I am going to admit her to the hospital for further work up and evaluation. Overall, she feels pretty good after getting a dose of pain medicine here in the emergency department. She feels uncomfortable going home and would like to stay. I have notified Dr. Phipps and he is going to see her tomorrow when he is cement contractor. I am going to ask G to see her for evaluation of her stent as she does have a markedly elevated white blood cell count. Her liver function tests are normal but she does have right upper quadrant pain with a stent in place and an elevated white count so this would likely need to be further evaluated. MD COMFORT Stone/JOCELYN /1:11 PM /1:26 PM
[2017-07-03] MEDS: ACETAMINOPHEN/HYDROcodone 325 MG/5 MG TAB PO PRN ×2 (14:47→20:12)
[2017-07-03] MEDS: LACTATED RINGER'S 1000 ML INJ 1,000 ML IV SCH (14:47)
--- NOTE | 2017-07-03 19:54 | PD.CONS ---
HPI History of Present Illness This is a 66 year old year old female patient with a history of choledocholithiasis. She underwent ERCP with sphincterotomy with balloon sweep and stent placement (05/18/17) which revealed choledocholithiasis, s/p stent placement. She was then referred to general surgery and underwent laparoscopic cholecystectomy with Dr. Phipps on 06/25/17 at [facility]. She reports that since her discharge, she has been doing well- eating fine, moving her bowels, and minimal pain. afternoon, she reports that she picked up a heavy bag of something in the kitchen and twisted her body to put it on the counter. As she did this, she reports that she felt a "pop" in her right upper quadrant. Shortly after this, she began having pain in her right upper quadrant that was both cramping/achy/throbbing- almost like a jatin horse. She states that it was constant and not getting better and therefore she came to the ER. The pain is aggravated by movement and has no relation to food. She denies any fevers or chills, nausea, or vomiting. She reports that she has been having regular bowel movements and had one yesterday. She was noted to have leukocytosis and a CT scan abdomen and pelvis (07/03/17) revealed patient who had a cholecystectomy with a few surgical clips in place. Within the gallbladder fossa there is a 5.2 x 3.4 cm fluid collection with a few tiny locules of air suspicious for either a seroma or possibly a biloma. Some of the fluid dissects inferiorly extending to the right kidney. Biliary stent in good position although there still moderate distention of the intrahepatic biliary tree, new since February. LFTs are normal. HIDA scan is pending. GI was consulted for further evaluation with regards to the intrahepatic biliary tree/ leukocytosis. (Louisa Fuentes) PFSH Past Medical History Cholelithiasis/Choledocholithiasis Past Surgical History ERCP with sphincterotomy, stent placement Laminectomy L4-5 Tooth extraction (Louisa Fuentes) Coded Allergies: morphine (Verified Allergy, Severe, 07/03/17) HALLUCINATE Medications Laparoscopic cholecystic Family History Mother has endometrial cancer- alive at age 90 Maternal gm had breast cancer Social History No tobacco Occasional ETOH No illicit drug use. (Louisa Fuentes) Review of Systems Constitutional: COMPLAINS OF: Fatigue, DENIES: Fever, Weight loss, Chills, Change in appetite Respiratory: DENIES: Cough Cardiovascular: DENIES: Chest pain Gastrointestinal: COMPLAINS OF: Abdominal pain, DENIES: Black stools, Bloody stools, Constipation, Diarrhea, Nausea, Vomiting, Swelling of Abdomen, Hematemesis Integumentary: DENIES: Abnormal pigmentation, Jaundice Hematologic/lymphatic: DENIES: Bruising Neurologic: DENIES: Headache Psychiatric: DENIES: Confusion (Louisa Fuentes) GI Exam Vitals I&O Vital Signs Date Time Temp Pulse Resp B/P (MAP) Pulse Ox O2 Delivery O2 Flow Rate FiO2 07/03/17 16:00 96.9 93 18 123/65 (84) 99 07/03/17 15:50 07/03/17 15:00 90 23 112/67 (82) 100 Nasal Cannula 2.00 07/03/17 14:00 82 13 104/67 (79) 100 Nasal Cannula 2.00 07/03/17 13:21 91 21 113/64 (80) 99 Nasal Cannula 2.00 07/03/17 11:03 83 23 111/59 (76) 99 Nasal Cannula 2.00 07/03/17 09:00 18 07/03/17 08:05 74 22 129/62 (84) 100 Nasal Cannula 2.00 07/03/17 06:58 98.6 85 18 128/61 (83) 99 Room Air 07/03/17 03:36 76 16 99 Room Air 07/03/17 02:07 97.8 07/03/17 02:03 85 14 118/61 (80) I/O 07/02/17 07/02/17 07/02/17 07/03/17 07/03/17 07/03/17 07:00 15:00 23:00 07:00 15:00 23:00 Intake Total 1000 ml 390 ml Output Total 150 ml Balance 1000 ml 240 ml Intake Oral 240 ml IV Total 1000 ml 150 ml Output Urine Total 150 ml # Bowel Movements 0 Imaging Last Impressions Abdomen/Pelvis CT 07/03/17 0322 Signed Impressions: Service Date/Time: Monday, July 03, 2017 04:44 - CONCLUSION: The patient had a cholecystectomy with a few surgical clips in place. Within the gallbladder fossa there is a 5.2 x 3.4 cm fluid collection with a few tiny locules of air suspicious for either a seroma or possibly a biloma. Some of the fluid dissects inferiorly extending to the right kidney. Biliary stent in good position although there still moderate distention of the intrahepatic biliary tree, new since February. Mati Rod MD Laboratory Test 07/03/17 03:20 White Blood Count 23.2 TH/MM3 Red Blood Count 4.15 MIL/MM3 Hemoglobin 12.8 GM/DL Hematocrit 40.0 % Mean Corpuscular Volume 96.4 FL Mean Corpuscular Hemoglobin 30.9 PG Mean Corpuscular Hemoglobin Concent 32.0 % Red Cell Distribution Width 14.5 % Platelet Count 303 TH/MM3 Mean Platelet Volume 7.9 FL Neutrophils (%) (Auto) 89.7 % Lymphocytes (%) (Auto) 2.3 % Monocytes (%) (Auto) 7.9 % Eosinophils (%) (Auto) 0.0 % Basophils (%) (Auto) 0.1 % Neutrophils # (Auto) 20.8 TH/MM3 Lymphocytes # (Auto) 0.5 TH/MM3 Monocytes # (Auto) 1.8 TH/MM3 Eosinophils # (Auto) 0.0 TH/MM3 Basophils # (Auto) 0.0 TH/MM3 CBC Comment DIFF FINAL Differential Comment Prothrombin Time 10.3 SEC Prothromb Time International Ratio 0.9 RATIO Activated Partial Thromboplast Time 24.9 SEC Urine Color YELLOW Urine Turbidity CLEAR Urine pH 7.5 Urine Specific [place] 1.019 Urine Protein TRACE mg/dL Urine Glucose (UA) NEG mg/dL Urine Ketones NEG mg/dL Urine Occult Blood NEG Urine Nitrite NEG Urine Bilirubin NEG Urine Urobilinogen LESS THAN 2.0 MG/DL Urine Leukocyte Esterase NEG Urine RBC 2 /hpf Urine WBC 1 /hpf Urine Squamous Epithelial Cells <1 /hpf Urine Mucus FEW /lpf Microscopic Urinalysis Comment CULT NOT INDICATED Blood Urea Nitrogen 10 MG/DL Creatinine 0.77 MG/DL Random Glucose 108 MG/DL Total Protein 7.3 GM/DL Albumin 3.6 GM/DL Calcium Level 8.9 MG/DL Alkaline Phosphatase 77 U/L Aspartate Amino Transf (AST/SGOT) 41 U/L Alanine Aminotransferase (ALT/SGPT) 41 U/L Total Bilirubin 0.5 MG/DL Sodium Level 134 MEQ/L Potassium Level 3.7 MEQ/L Chloride Level 98 MEQ/L Carbon Dioxide Level 27.4 MEQ/L Anion Gap 9 MEQ/L Estimat Glomerular Filtration Rate 75 ML/MIN Lipase 74 U/L Physical Examination HEENT: Normocephalic; atraumatic; no jaundice. CHEST: CTA CARDIAC: RRR ABDOMEN: Soft, mildly distended,RUQ tenderness; no hepatosplenomegaly; bowel sounds are present in all four quadrants. EXTREMITIES: No clubbing, cyanosis, or edema. SKIN: Normal; no rash; no jaundice. COMPUTER NUMERICAL CONTROL OPERATOR: No focal deficits; alert and oriented times three. (Louisa Fuentes LINGO CLEANER) Assessment and Plan Plan ASSESSMENT: - RUQ pain in patient with recent cholecystectomy, biliary stent in place. Hx choledocholithiasis. S/P ERCP with sphincterotomy with balloon sweep and stent placement (05/18/17)----> revealed choledocholithiasis, s/p stent placement. S/P laparoscopic cholecystectomy with Dr. Phipps (06/25/17) at [facility]. She was doing well up until afternoon, when she picked up a heavy bag of something in the kitchen and twisted her body to put it on the counter and felt a "pop" in her right upper quadrant. Shortly after this, she began having pain in her right upper quadrant that was both cramping/achy /throbbing- almost like a jatin horse-aggravated by movement and has no relation to food. Denies fevers or chills, nausea, or vomiting. She reports that she has been having regular bowel movements and had one yesterday. WBC 23.2. T. Bili 0.5, AST 41, ALT 41, Alk Phosph 77. CT scan abdomen and pelvis (07/03/17) revealed patient who had a cholecystectomy with a few surgical clips in place. Within the gallbladder fossa there is a 5.2 x 3.4 cm fluid collection with a few tiny locules of air suspicious for either a seroma or possibly a biloma. Some of the fluid dissects inferiorly extending to the right kidney. Biliary stent in good position although there still moderate distention of the intrahepatic biliary tree, new since February. LFTs are normal. HIDA scan is pending. Clinically, she is much improved, although she still has tenderness, some discomfort when she moves. It is unclear at this time the etiology of her pain. She does not seem to be obstructed based on LFTs, but she does have some new moderate distention of intrahepatic biliary tree- which is new. She has a fluid collection in the gallbladder fossa- ? seroma vs. biloma. Will await HIDA scan, as well as repeat labs, to evaluate for obstruction or leak. Further recommendations to follow based on results of above. Cont. Levaquin. - Intrahepatic biliary tree dilatation. HIDA scan pending - Leukocytosis. WBC 23.2. Levaquin PLAN: - JASMINE - Await HIDA scan - Cont. Levaquin - CBC, CMP in am - GS following - ? need for stent exchange vs. removal based on results of HIDA and repeat labs - Supportive care - Further recommendations to follow based on results of above - Pt seen and examined by Dr. Agosto and myself and this note is written on his behalf (Louisa Fuentes) Physician Comments Agree with about assessment and plan. Will check HIDA scan and consider stenting exchange accordingly. Will follow up with you. (Bibi Agosto MD) Louisa Fuentes Jul 03, 2017 19:54 Bibi Agosto MD Jul 03, 2017 20:41
[2017-07-03] MEDS: SODIUM CHLORIDE 0.9% FLUSH 5 ML FLUSH IVF SCH (20:13)
[2017-07-04] VITALS: BP 123/60; PULSE 89; RESP 20; TEMP 97.9; O2SAT 98
[2017-07-04] MEDS: LACTATED RINGER'S 1000 ML INJ 1,000 ML IV SCH ×3 (01:52→20:57)
[2017-07-04 06:11] LABS: AUTOMATED NEUTROPHIL # 15.4 TH/MM3 (1.8-7.7); BASOPHIL % 0.1 % (0.0-2.0); EOSINOPHIL # 0.1 TH/MM3 (0-0.4); EOSINOPHIL % 0.8 % (0.0-4.0); HEMATOCRIT 33.2 % (35.0-46.0); HEMO FLAGS DIFF FINAL; LYMPH % 5.1 % (9.0-44.0); LYMPHOCYTE # 0.9 TH/MM3 (1.0-4.8); MEAN CELL VOLUME 95.4 FL (80.0-100.0); MEAN CORPUSCULAR HEMOGLOBIN 31.8 PG (27.0-34.0); MEAN CORPUSCULAR HGB CONC 33.3 % (32.0-36.0); PLATELET COUNT 236 TH/MM3 (150-450); RED BLOOD COUNT 3.48 MIL/MM3 (4.00-5.30); RED CELL DISTRIBUTION WIDTH 14.7 % (11.6-17.2); WHITE BLOOD COUNT 17.3 TH/MM3 (4.0-11.0)
[2017-07-04] MEDS: KETOROLAC TROMETHAMINE 30 MG/ML (IVP) VIAL IVP PRN ×3 (06:37→18:55)
[2017-07-04 07:34] LABS: INDIRECT BILIRUBIN 0.3 MG/DL (0.0-0.8); TOTAL BILIRUBIN ADULT 0.4 MG/DL (0.2-1.0)
[2017-07-04 08:00] VITALS: BP 119/66; PULSE 81; RESP 18; TEMP 99.7; O2SAT 98
[2017-07-04] MEDS: SODIUM CHLORIDE 0.9% FLUSH 5 ML FLUSH IVF SCH ×2 (08:52→20:58)
[2017-07-04] MEDS: LEVOFLOXACIN 500 MG TAB PO SCH (08:53)
--- NOTE | 2017-07-04 11:29 | HHI.GIFU ---
Subjective Remarks Overall feeling better, no fever but still complaining of RUQ abd pain especially with breathing. Objective Vitals I&O Vital Signs Date Time Temp Pulse Resp B/P (MAP) Pulse Ox O2 Delivery O2 Flow Rate FiO2 07/04/17 08:00 99.7 81 18 119/66 (83) 98 07/04/17 00:00 97.9 89 20 123/60 (81) 98 07/03/17 20:00 98.0 88 20 104/60 (75) 98 07/03/17 16:00 96.9 93 18 123/65 (84) 99 07/03/17 15:50 07/03/17 15:00 90 23 112/67 (82) 100 Nasal Cannula 2.00 07/03/17 14:00 82 13 104/67 (79) 100 Nasal Cannula 2.00 07/03/17 13:21 91 21 113/64 (80) 99 Nasal Cannula 2.00 I/O 07/03/17 07/03/17 07/03/17 07/04/17 07/04/17 07/04/17 07:00 15:00 23:00 07:00 15:00 23:00 Intake Total 1000 ml 390 ml 1412 ml Output Total 150 ml Balance 1000 ml 240 ml 1412 ml Intake Oral 240 ml IV Total 1000 ml 150 ml 1412 ml Output Urine Total 150 ml # Voids 4 # Bowel Movements 0 Laboratory Laboratory Tests Test 07/04/17 05:30 White Blood Count 17.3 Red Blood Count 3.48 Hemoglobin 11.1 Hematocrit 33.2 Mean Corpuscular Volume 95.4 Mean Corpuscular Hemoglobin 31.8 Mean Corpuscular Hemoglobin Concent 33.3 Red Cell Distribution Width 14.7 Platelet Count 236 Mean Platelet Volume 7.9 Neutrophils (%) (Auto) 89.0 Lymphocytes (%) (Auto) 5.1 Monocytes (%) (Auto) 5.0 Eosinophils (%) (Auto) 0.8 Basophils (%) (Auto) 0.1 Neutrophils # (Auto) 15.4 Lymphocytes # (Auto) 0.9 Monocytes # (Auto) 0.9 Eosinophils # (Auto) 0.1 Basophils # (Auto) 0.0 CBC Comment DIFF FINAL Differential Comment Total Bilirubin 0.4 Direct Bilirubin 0.1 Indirect Bilirubin 0.3 Aspartate Amino Transf (AST/SGOT) 20 Alanine Aminotransferase (ALT/SGPT) 41 Alkaline Phosphatase 120 Total Protein 6.1 Albumin 2.7 Physical Exam HEENT: Pupils round and reactive to light; normocephalic; atraumatic; no jaundice. Throat is clear. NECK: Neck is supple, no JVD, no lymphadenopathy. CHEST: Chest is clear to auscultation and percussion. CARDIAC: Regular rate and rhythm with no murmur gallop or rubs. ABDOMEN: positive tenderness in the RUQ area EXTREMITIES: No clubbing, cyanosis, or edema. SKIN: Normal; no rash; no jaundice. INSECTICIDE MIXER: No focal deficits; alert and oriented times three. Assessment and Plan Plan ASSESSMENT: - RUQ pain in patient with recent cholecystectomy, biliary stent in place. Hx choledocholithiasis. S/P ERCP with sphincterotomy with balloon sweep and stent placement (05/18/17)----> revealed choledocholithiasis, s/p stent placement. S/P laparoscopic cholecystectomy with Dr. Phipps (06/25/17) at [facility]. She was doing well up until afternoon, when she picked up a heavy bag of something in the kitchen and twisted her body to put it on the counter and felt a "pop" in her right upper quadrant. Shortly after this, she began having pain in her right upper quadrant that was both cramping/achy /throbbing- almost like a jatin horse-aggravated by movement and has no relation to food. Denies fevers or chills, nausea, or vomiting. She reports that she has been having regular bowel movements and had one yesterday. WBC 23.2. T. Bili 0.5, AST 41, ALT 41, Alk Phosph 77. CT scan abdomen and pelvis (07/03/17) revealed patient who had a cholecystectomy with a few surgical clips in place. Within the gallbladder fossa there is a 5.2 x 3.4 cm fluid collection with a few tiny locules of air suspicious for either a seroma or possibly a biloma. Some of the fluid dissects inferiorly extending to the right kidney. Biliary stent in good position although there still moderate distention of the intrahepatic biliary tree, new since February. LFTs are normal. HIDA scan is pending. Clinically, she is much improved, although she still has tenderness, some discomfort when she moves. It is unclear at this time the etiology of her pain. She does not seem to be obstructed based on LFTs, but she does have some new moderate distention of intrahepatic biliary tree- which is new. She has a fluid collection in the gallbladder fossa- ? seroma vs. biloma. HIDA scan showed patent stent and biliary tree, LFT's normalizing and WBC's down - Leukocytosis. WBC decreasing today Levaquin PLAN: - JASMINE - IR for possible drainage, will discuss it with GS - Cont. Levaquin - CBC, CMP in am - GS following - Supportive care - Further recommendations to follow based on results of above Bibi Agosto MD Jul 04, 2017 11:29
[2017-07-04 12:00] VITALS: BP 132/63; PULSE 83; RESP 16; TEMP 97.9; O2SAT 99
[2017-07-04 16:00] VITALS: BP 126/70; PULSE 95; RESP 18; TEMP 96.6; O2SAT 98
--- NOTE | 2017-07-04 17:54 | HHI.PR ---
Subjective Subjective Notes feels better Objective Vitals/I&O Vital Signs Date Time Temp Pulse Resp B/P (MAP) Pulse Ox O2 Delivery O2 Flow Rate FiO2 07/04/17 16:00 96.6 95 18 126/70 (88) 98 07/03/17 15:00 Nasal Cannula 2.00 Labs Laboratory Tests Test 07/04/17 05:30 White Blood Count 17.3 Red Blood Count 3.48 Hemoglobin 11.1 Hematocrit 33.2 Mean Corpuscular Volume 95.4 Mean Corpuscular Hemoglobin 31.8 Mean Corpuscular Hemoglobin Concent 33.3 Red Cell Distribution Width 14.7 Platelet Count 236 Mean Platelet Volume 7.9 Neutrophils (%) (Auto) 89.0 Lymphocytes (%) (Auto) 5.1 Monocytes (%) (Auto) 5.0 Eosinophils (%) (Auto) 0.8 Basophils (%) (Auto) 0.1 Neutrophils # (Auto) 15.4 Lymphocytes # (Auto) 0.9 Monocytes # (Auto) 0.9 Eosinophils # (Auto) 0.1 Basophils # (Auto) 0.0 CBC Comment DIFF FINAL Differential Comment Magnesium Level 1.9 Total Bilirubin 0.4 Direct Bilirubin 0.1 Indirect Bilirubin 0.3 Aspartate Amino Transf (AST/SGOT) 20 Alanine Aminotransferase (ALT/SGPT) 41 Alkaline Phosphatase 120 Total Protein 6.1 Albumin 2.7 Abdomen: Non-distended, Non-tender A/P Assessment and Plan 66yo female s/p lap flaquito, now with RUQ fluid and RUQ pain and possible infection, will ask IR to aspirate, possibly place drain. continue ABX Aravind Phipps MD Jul 04, 2017 17:54
[2017-07-04 20:00] VITALS: BP 126/64; PULSE 98; RESP 18; TEMP 98; O2SAT 97
[2017-07-05] VITALS (8 sets, daily range): BP systolic 114–143; BP diastolic 69–84; PULSE 74–89; RESP 16–18; TEMP 97–99.6; O2SAT 91–100
[2017-07-05] MEDS: ONDANSETRON HCL 4 MG/2 ML VIAL IV PRN ×2 (00:09→08:00)
[2017-07-05] MEDS: KETOROLAC TROMETHAMINE 30 MG/ML (IVP) VIAL IVP PRN ×3 (00:58→19:19)
[2017-07-05] MEDS: LACTATED RINGER'S 1000 ML INJ 1,000 ML IV SCH ×3 (05:29→21:26)
[2017-07-05] MEDS: SODIUM CHLORIDE 0.9% FLUSH 5 ML FLUSH IVF SCH ×2 (08:00→21:00)
[2017-07-05] MEDS: LEVOFLOXACIN 500 MG TAB PO SCH (08:00)
[2017-07-05] MEDS ORDERED: LIDOCAINE HCL 1% 20 ML VIAL ONE (08:06)
[2017-07-05] MEDS ORDERED: MIDAZOLAM HCL 2 MG/2 ML VIAL ONE ×2 (08:22→08:54)
--- NOTE | 2017-07-05 09:35 | RADRPT ---
EXAM DATE/TIME: 07/05/2017 08:37 [place] COMPARISON: No previous studies available for comparison. INDICATIONS : Abdominal abscess post cholecystectomy SEDATION TIME: 30 minutes MEDICATION(S): 1.) 3 mg midazolam (Versed) IV 2.) 150 mcg fentanyl (Sublimaze) IV DEVICE(S): 1.) 18 gauge Jay blunt needle 2.) 8 Fr Skater FLUID: Total volume of 20 cc of cloudy, yellow fluid was removed. Fluid was sent for laboratory ordered studies. MEDICAL HISTORY : None. SURGICAL HISTORY : Cholecystectomay ENCOUNTER: Initial ACUITY: 1 week PAIN SCORE: 5/10 LOCATION: Right upper quadrant PROCEDURE: 1.) Conscious sedation with continuous EKG and oximetry monitoring. 2.) EKG and oximetry remained stable throughout the procedure. PROCEDURE : 1. CT guided drainage of the subhepatic fluid collection 2. Conscious sedation with continuous EKG and oximetry monitoring. The risks, benefits and alternatives to the procedure were explained and verbal and written consent w as obtained. Using automated exposure control and adjustment of the mA and/or kV according to patient size, radiation dose was kept as low as reasonably achievable to obtain optimal diagnostic quality i mages. The site was prepped in sterile fashion. Full sterile technique was used, including cap, ma sk, sterile gloves and gown and a large sterile sheet. Hand hygiene and 2% chlorhexidine and/or beta dine/alcohol prep was utilized per protocol for cutaneous antisepsis. The skin and subcutaneous tiss ues were infiltrated with local anesthetic solution. DICOM format image data is available electronic ally for review and comparison. Using CT guidance the subhepatic fluid collection was localized. Drainage was performed using the pr escribed catheter. Aspiration yielded 20 mL of purulent material. A sample was sent for microbiologic al evaluation. The patient tolerated the procedure well and there were no complications. Conscious sedation was per formed with the prescribed dosages and duration as above in the presence of an independent trained ra diology nurse to assist in the monitoring of the patient. EKG and oximetry remained stable throughou t the procedure. The patient tolerated the procedure well and there were no complications. The patient was sent to pos t anesthesia recovery in stable condition. CONCLUSION: Uncomplicated CT guided drainage of a subhepatic fluid collection. Jose Whitt Jr., MD on July 05, 2017 at 9:29 Board Certified Radiologist. This report was verified electronically.
--- NOTE | 2017-07-05 12:15 | HHI.PR ---
Subjective Subjective Notes feels much better, no fevers Objective Vitals/I&O Vital Signs Date Time Temp Pulse Resp B/P (MAP) Pulse Ox O2 Delivery O2 Flow Rate FiO2 07/05/17 10:05 76 18 124/74 (91) 91 07/05/17 09:20 98.6 07/03/17 15:00 Nasal Cannula 2.00 Cardiovascular: Regular Lungs: Clear Abdomen: Other (soft, rodger serous) A/P Assessment and Plan s/p IR drain, hx of lap flaquito plan reg diet oob pain control rodger sxn check labs tomorrow Good Estrada MD Jul 05, 2017 12:15
--- NOTE | 2017-07-05 12:55 | HHI.GIFU ---
Subjective Remarks Resting in bed. Went to IR this am for drainage/drain placement of fluid collection. States she is feeling much better since this has been drained. Hoping that her biliary stent can be removed prior to discharge. (Louisa Fuentes) Objective Vitals I&O Vital Signs Date Time Temp Pulse Resp B/P (MAP) Pulse Ox O2 Delivery O2 Flow Rate FiO2 07/05/17 12:00 97.8 80 18 121/69 (86) 96 07/05/17 10:05 76 18 124/74 (91) 91 07/05/17 09:35 74 18 119/77 (91) 93 07/05/17 09:20 98.6 82 18 114/69 (84) 94 07/05/17 08:00 98.6 83 16 143/84 (103) 97 07/05/17 00:00 98.8 89 18 133/69 (90) 95 07/04/17 20:00 98.0 98 18 126/64 (84) 97 07/04/17 16:00 96.6 95 18 126/70 (88) 98 I/O 07/04/17 07/04/17 07/04/17 07/05/17 07/05/17 07/05/17 07:00 15:00 23:00 07:00 15:00 23:00 Intake Total 1412 ml 696 ml 0 ml 1429 ml Balance 1412 ml 696 ml 0 ml 1429 ml Intake Oral 0 ml IV Total 1412 ml 696 ml 1429 ml # Voids 4 5 5 # Bowel Movements 0 Imaging Last Impressions Abscess Drainage CT 07/05/17 0600 Signed Impressions: Service Date/Time: Wednesday, July 05, 2017 08:37 - CONCLUSION: Uncomplicated CT guided drainage of a subhepatic fluid collection. Jose Whitt Jr., MD Abdomen/Pelvis CT 07/03/17 0322 Signed Impressions: Service Date/Time: Monday, July 03, 2017 04:44 - CONCLUSION: The patient had a cholecystectomy with a few surgical clips in place. Within the gallbladder fossa there is a 5.2 x 3.4 cm fluid collection with a few tiny locules of air suspicious for either a seroma or possibly a biloma. Some of the fluid dissects inferiorly extending to the right kidney. Biliary stent in good position although there still moderate distention of the intrahepatic biliary tree, new since February. Mati Rod MD Physical Exam HEENT: Normocephalic; atraumatic; no jaundice. CHEST: CTA CARDIAC: RRR ABDOMEN: Abdomen soft, RUQ tenderness- mild, drain with small amount of clear yellowish drainage. BSx4 EXTREMITIES: No clubbing, cyanosis, or edema. SKIN: Normal; no rash; no jaundice. 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 (Louisa FuentesP) Assessment and Plan Plan ASSESSMENT: - RUQ pain in patient with recent cholecystectomy, biliary stent in place. Hx choledocholithiasis. S/P ERCP with sphincterotomy with balloon sweep and stent placement (05/18/17)----> revealed choledocholithiasis, s/p stent placement. S/P laparoscopic cholecystectomy with Dr. Phipps (06/25/17) at [facility]. She was doing well up until afternoon, when she picked up a heavy bag of something in the kitchen and twisted her body to put it on the counter and felt a "pop" in her right upper quadrant. Shortly after this, she began having pain in her right upper quadrant that was both cramping/achy/throbbing- almost like a jatin horse-aggravated by movement and has no relation to food. Denies fevers or chills, nausea, or vomiting. CT scan abdomen and pelvis (07/03/17) revealed patient who had a cholecystectomy with a few surgical clips in place. Within the gallbladder fossa there is a 5.2 x 3.4 cm fluid collection with a few tiny locules of air suspicious for either a seroma or possibly a biloma. Some of the fluid dissects inferiorly extending to the right kidney. Biliary stent in good position although there still moderate distention of the intrahepatic biliary tree, new since February. LFTs are normal. HIDA scan (07/03/17)---> no evidence of obstruction or leakage. S/P CT guided drainage/drain placement ( 07/05), states she is feeling much better. GS following LFT stable. WBC improved yesterday. - Leukocytosis. WBC decreased yesterday. Levaquin PLAN: - JASMINE - S/P IR drainage/drain placement - Cont. Levaquin - CBC in am - GS following - Supportive care - ? timing of removal of biliary stent- pt would like it removed prior to d/c if possible - Further recommendations to follow based on results of above - PT seen and examined by Dr. Agosto and myself and this note is written on his behalf (Louisa Fuentes) Physician Comments Seen and examined, plan as above, will arrange stent removal. Will follow up with you (Bibi Agosto MD) Louisa Fuentes Jul 05, 2017 12:55 Bibi Agosto MD Jul 05, 2017 14:34
[2017-07-05] MEDS: DOCUSATE SODIUM 50 MG/SENNA 8.6 MG TAB PO SCH ×2 (14:30→21:22)
[2017-07-06] VITALS: BP 134/78; PULSE 79; RESP 18; TEMP 98.9; O2SAT 98
[2017-07-06] MEDS: ACETAMINOPHEN/HYDROcodone 325 MG/5 MG TAB PO PRN ×3 (03:41→21:12)
[2017-07-06 07:59] LABS: BASOPHIL % 0.1 % (0.0-2.0); EOSINOPHIL # 0.1 TH/MM3 (0-0.4); HEMATOCRIT 29.7 % (35.0-46.0); HEMO FLAGS DIFF FINAL; LYMPH % 10.2 % (9.0-44.0); LYMPHOCYTE # 0.8 TH/MM3 (1.0-4.8); MEAN CELL VOLUME 95.3 FL (80.0-100.0); MEAN CORPUSCULAR HEMOGLOBIN 32.2 PG (27.0-34.0); MEAN CORPUSCULAR HGB CONC 33.8 % (32.0-36.0); MONO % 11.4 % (0.0-8.0); NEUT % 77.3 % (16.0-70.0); PLATELET COUNT 231 TH/MM3 (150-450); RED BLOOD COUNT 3.12 MIL/MM3 (4.00-5.30); RED CELL DISTRIBUTION WIDTH 14.5 % (11.6-17.2); WHITE BLOOD COUNT 7.7 TH/MM3 (4.0-11.0)
[2017-07-06 08:00] VITALS: BP 140/74; PULSE 67; RESP 17; TEMP 97.8; O2SAT 97
[2017-07-06] MEDS: DOCUSATE SODIUM 50 MG/SENNA 8.6 MG TAB PO SCH ×2 (08:32→21:12)
[2017-07-06] MEDS: SODIUM CHLORIDE 0.9% FLUSH 5 ML FLUSH IVF SCH ×2 (08:32→21:00)
[2017-07-06] MEDS: LEVOFLOXACIN 500 MG TAB PO SCH (08:32)
--- NOTE | 2017-07-06 08:59 | RADRPT ---
EXAM DATE/TIME: 07/03/2017 09:27 [facility] COMPARISON: CT ABDOMEN & PELVIS W CONTRAST, July 03, 2017, 4:44. INDICATIONS : Abdominal pain and cholecystectomy 1 week ago. DOSE: 4.1 mCi Tc99m Mebrofenin IV MEDICAL HISTORY : None SURGICAL HISTORY : Cholecystectomy. Laminectomy. ENCOUNTER: Initial ACUITY: 1 day PAIN SCALE: 2/10 LOCATION: Right upper quadrant TECHNIQUE: Following the intravenous administration of radiotracer, dynamic sequential images were performed wit h continuous acquisition. FINDINGS: HEPATIC KINETICS: There is prompt uptake of radiotracer in the liver. No focal defects are seen. There is normal rate of washout from the hepatic parenchyma. BILIARY CLEARANCE: Activity is first seen in the extrahepatic biliary system at 10 minutes. There is normal excretion i nto the small bowel. GALLBLADDER: Surgically removed. There is no evidence of extravasation of tracer activity into the peritoneal cavi ty or into the gallbladder fossa. BILIARY ENTRIC REFLUX: None observed. CONCLUSION: No evidence of obstruction or leakage Olu Sanchez MD on July 03, 2017 at 10:47 Board Certified Radiologist. This report was verified electronically.
--- NOTE | 2017-07-06 10:14 | HHI.PR ---
Subjective Subjective Notes no issues, feels much better Objective Vitals/I&O Vital Signs Date Time Temp Pulse Resp B/P (MAP) Pulse Ox O2 Delivery O2 Flow Rate FiO2 07/06/17 08:00 97.8 67 17 140/74 (96) 97 07/03/17 15:00 Nasal Cannula 2.00 Labs Laboratory Tests Test 07/06/17 06:45 White Blood Count 7.7 Red Blood Count 3.12 Hemoglobin 10.0 Hematocrit 29.7 Mean Corpuscular Volume 95.3 Mean Corpuscular Hemoglobin 32.2 Mean Corpuscular Hemoglobin Concent 33.8 Red Cell Distribution Width 14.5 Platelet Count 231 Mean Platelet Volume 8.3 Neutrophils (%) (Auto) 77.3 Lymphocytes (%) (Auto) 10.2 Monocytes (%) (Auto) 11.4 Eosinophils (%) (Auto) 1.0 Basophils (%) (Auto) 0.1 Neutrophils # (Auto) 6.0 Lymphocytes # (Auto) 0.8 Monocytes # (Auto) 0.9 Eosinophils # (Auto) 0.1 Basophils # (Auto) 0.0 CBC Comment DIFF FINAL Differential Comment Date/Time Source Procedure Growth Status 07/05/17 11:00 Fluid Peritoneal Fluid Gram Stain - Final Resulted 07/05/17 11:00 Fluid Peritoneal Fluid Body Fluid Culture Pending Resulted Abdomen: Other (incisional tenderness, drain serous) A/P Assessment and Plan s/p IR drain, hx of lap flaquito plan reg diet oob pain control rodger sxn likely d/c tomorrow Good Estrada MD Jul 06, 2017 10:14
[2017-07-06] MEDS: LACTATED RINGER'S 1000 ML INJ 1,000 ML IV SCH ×2 (11:05→21:05)
[2017-07-06 12:00] VITALS: BP 126/72; PULSE 74; RESP 17; TEMP 95.7; O2SAT 98
[2017-07-06 16:00] VITALS: BP 119/68; PULSE 80; RESP 16; TEMP 98.1; O2SAT 96
[2017-07-06 20:00] VITALS: BP 127/77; PULSE 76; RESP 16; TEMP 96; O2SAT 96
[2017-07-07] VITALS: BP 134/78; PULSE 75; RESP 16; TEMP 97.9; O2SAT 97
[2017-07-07] MEDS: ACETAMINOPHEN/HYDROcodone 325 MG/5 MG TAB PO PRN ×2 (06:58→11:06)
[2017-07-07] MEDS: LACTATED RINGER'S 1000 ML INJ 1,000 ML IV SCH ×2 (07:05→17:05)
[2017-07-07 08:00] VITALS: BP 128/69; PULSE 79; RESP 17; TEMP 97.2; O2SAT 96
[2017-07-07] MEDS: SODIUM CHLORIDE 0.9% FLUSH 5 ML FLUSH IVF SCH ×2 (09:00→20:31)
[2017-07-07] MEDS: LEVOFLOXACIN 500 MG TAB PO SCH (09:16)
[2017-07-07] MEDS: DOCUSATE SODIUM 50 MG/SENNA 8.6 MG TAB PO SCH ×2 (09:16→20:30)
[2017-07-07 12:00] VITALS: BP 140/78; PULSE 77; RESP 17; TEMP 95.4; O2SAT 97
[2017-07-07 16:00] VITALS: BP 132/73; PULSE 76; RESP 17; TEMP 96.7; O2SAT 98
--- NOTE | 2017-07-07 17:01 | HHI.GIFU ---
Subjective Remarks Resting in bed. States she has "soreness" at the site when she moves, but no significant abdominal pain. No n/v. Tolerating diet. States that she is staying until final cultures are back tomorrow and will likely go home tomorrow evening. She states she would like to follow up as outpatient to have biliary stent removed- states she will make appointment with Dr. Cervantes after she follows up with Dr. Urias as outpt. (Louisa Fuentes [facility]) Objective Vitals I&O Vital Signs Date Time Temp Pulse Resp B/P (MAP) Pulse Ox O2 Delivery O2 Flow Rate FiO2 07/07/17 12:00 95.4 77 17 140/78 (98) 97 07/07/17 08:00 97.2 79 17 128/69 (88) 96 07/07/17 00:00 97.9 75 16 134/78 (96) 97 07/06/17 20:00 96.0 76 16 127/77 (94) 96 I/O 07/06/17 07/06/17 07/06/17 07/07/17 07/07/17 07/07/17 07:00 15:00 23:00 07:00 15:00 23:00 Intake Total 720 ml 240 ml 360 ml Output Total 20 ml Balance 720 ml 220 ml 360 ml Intake Oral 720 ml 240 ml 360 ml Drainage Total 20 ml # Voids 5 6 5 # Bowel Movements 0 1 0 Laboratory Date/Time Source Procedure Growth Status 07/05/17 11:00 Fluid Peritoneal Fluid Gram Stain - Final Resulted 07/05/17 11:00 Body Fluid Culture - Preliminary Gram Negative Stephane Group D Enterococcus Viridans Streptococcus Grp Resulted Imaging Last Impressions Abscess Drainage CT 07/05/17 0600 Signed Impressions: Service Date/Time: Wednesday, July 05, 2017 08:37 - CONCLUSION: Uncomplicated CT guided drainage of a subhepatic fluid collection. Jose Whitt Jr., MD Hepatobiliary Scan Nuclear Medicine 07/03/17 0639 Signed Impressions: Service Date/Time: Monday, July 03, 2017 09:27 - CONCLUSION: No evidence of obstruction or leakage Olu Sanchez MD Abdomen/Pelvis CT 07/03/17 0322 Signed Impressions: Service Date/Time: Monday, July 03, 2017 04:44 - CONCLUSION: The patient had a cholecystectomy with a few surgical clips in place. Within the gallbladder fossa there is a 5.2 x 3.4 cm fluid collection with a few tiny locules of air suspicious for either a seroma or possibly a biloma. Some of the fluid dissects inferiorly extending to the right kidney. Biliary stent in good position although there still moderate distention of the intrahepatic biliary tree, new since February. Mati Rod MD Physical Exam HEENT: Normocephalic; atraumatic; no jaundice. CHEST: CTA CARDIAC: RRR ABDOMEN: Abdomen soft, RUQ tenderness- mild, drain with small amount of clear yellowish drainage. BSx4 EXTREMITIES: No clubbing, cyanosis, or edema. SKIN: Normal; no rash; no jaundice. 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 (Louisa Fuentes) Assessment and Plan Plan ASSESSMENT: - RUQ pain in patient with recent cholecystectomy, biliary stent in place. Hx choledocholithiasis. S/P ERCP with sphincterotomy with balloon sweep and stent placement (05/18/17)----> revealed choledocholithiasis, s/p stent placement. S/P laparoscopic cholecystectomy with Dr. Phipps (06/25/17) at [facility]. She was doing well up until afternoon, when she picked up a heavy bag of something in the kitchen and twisted her body to put it on the counter and felt a "pop" in her right upper quadrant. Shortly after this, she began having pain in her right upper quadrant that was both cramping/achy/throbbing- almost like a jatin horse-aggravated by movement and has no relation to food. Denies fevers or chills, nausea, or vomiting. CT scan abdomen and pelvis (07/03/17) revealed patient who had a cholecystectomy with a few surgical clips in place. Within the gallbladder fossa there is a 5.2 x 3.4 cm fluid collection with a few tiny locules of air suspicious for either a seroma or possibly a biloma. Some of the fluid dissects inferiorly extending to the right kidney. Biliary stent in good position although there still moderate distention of the intrahepatic biliary tree, new since February. LFTs are normal. HIDA scan (07/03/17)---> no evidence of obstruction or leakage. S/P CT guided drainage/drain placement ( 07/05), CX GNR, Gr. D Enterococcus, Viridans streptococcus. Sensitivities pending. GS following. Plan is for d/c home tomorrow afternoon after sensitivities available. LFT stable. WBC 7.7. Pt would like to have biliary stent removed as outpatient once she is feeling better. - Leukocytosis. WBC improved. Levaquin - Anemia. 10.0/29.7. PLAN: - JASMINE - S/P IR drainage/drain placement - Cont. Levaquin - Await sensitivities - GS following - D/W patient timing of stent removal, she would like to follow up with Dr. Cervantes after following with Dr. Urias as outpatient and schedule as outpatient - GI will sign off, please reconsult as needed - PT seen and examined by Dr. Agosto and myself and this note is written on his behalf (Louisa Fuentes) Physician Comments Plan as lined up above, please notify us if needed. (Bibi Agosto MD) Louisa Fuentes Jul 07, 2017 17:01 Bibi Agosto MD Jul 07, 2017 22:53
--- NOTE | 2017-07-07 17:32 | HHI.PR ---
Subjective Subjective Notes feels better Objective Vitals/I&O Vital Signs Date Time Temp Pulse Resp B/P (MAP) Pulse Ox O2 Delivery O2 Flow Rate FiO2 07/07/17 16:00 96.7 76 17 132/73 (92) 98 07/03/17 15:00 Nasal Cannula 2.00 Labs Date/Time Source Procedure Growth Status 07/05/17 11:00 Fluid Peritoneal Fluid Gram Stain - Final Resulted 07/05/17 11:00 Body Fluid Culture - Preliminary Gram Negative Stephane Group D Enterococcus Viridans Streptococcus Grp Resulted Cardiovascular: Regular Lungs: Clear Abdomen: Non-distended, Non-tender A/P Assessment and Plan 66yo female s/p lap flaquito, now with RUQ abscess after lap flaquito, stable. - f/u Cx, DC on oral antibiotics accordingly Aravind Phipps MD Jul 07, 2017 17:32
[2017-07-07 20:00] VITALS: BP 138/83; PULSE 76; RESP 18; TEMP 98.3; O2SAT 98
[2017-07-08] VITALS: BP 134/70; PULSE 79; RESP 18; TEMP 97.6; O2SAT 97
[2017-07-08] MEDS: ACETAMINOPHEN/HYDROcodone 325 MG/5 MG TAB PO PRN (01:25)
[2017-07-08] MEDS: LACTATED RINGER'S 1000 ML INJ 1,000 ML IV SCH (03:05)
[2017-07-08 08:00] VITALS: BP_SYST 138; BP_SYST 139; BP_DIAS 63; BP_DIAS 93; PULSE 114; RESP 20; TEMP 99.9; O2SAT 95
[2017-07-08] MEDS ORDERED: LEVA500T20 PO (08:57)
[2017-07-08] MEDS: SODIUM CHLORIDE 0.9% FLUSH 5 ML FLUSH IVF SCH (09:00)
[2017-07-08] MEDS: DOCUSATE SODIUM 50 MG/SENNA 8.6 MG TAB PO SCH (09:42)
[2017-07-08] MEDS: LEVOFLOXACIN 500 MG TAB PO SCH (09:42)
[2017-07-08] MEDS ORDERED: ONDA4TAB7 PO (10:36)
[2017-07-08] MEDS ORDERED: ONDANSETRON ODT 4 MG TAB PO PRN (10:45)
[2017-07-08 12:00] VITALS: BP 146/78; PULSE 72; RESP 20; TEMP 97.2; O2SAT 96
--- NOTE | 2017-07-08 15:25 | HHI.DS ---
Discharge Summary Admission Date Jul 03, 2017 at 13:14 Discharge Date: Jul 08, 2017 Admitting Diagnosis abdominal pain, hematoma Brief History 66-year-old female status post ERCP with stent placement and laparoscopic cholecystectomy at [facility]; admitted to [place] with right upper quadrant abscess CBC/BMP: 07/06/17 0645 Significant Findings Laboratory Tests Test 07/06/17 06:45 Red Blood Count 3.12 MIL/MM3 (4.00-5.30) Hemoglobin 10.0 GM/DL (11.6-15.3) Hematocrit 29.7 % (35.0-46.0) Neutrophils (%) (Auto) 77.3 % (16.0-70.0) Monocytes (%) (Auto) 11.4 % (0.0-8.0) Lymphocytes # (Auto) 0.8 TH/MM3 (1.0-4.8) PE at Discharge Pleasant 66-year-old female resting in bed in no acute distress Respiratory: Clear to auscultation bilaterally Heart he had: Regular rate and rhythm Abdomen: lap sites c/d/i; accordion drain removed prior to DC Hospital Course This is a 66-year-old female who had an ERCP with stent placement and laparoscopic cholecystectomy [facility]. The patient comes to [facility] with severe right upper quadrant pain. A CT abdomen and pelvis was obtained which showed a right upper quadrant abscess. A IR drain was placed and abscess was sufficiently drained. The patient was started on antibiotics. The patient remained stable and was able to tolerate a regular diet. The patient's pain was controlled using oral pain medications. The patient will be sent home with a prescription with Augmentin. She is scheduled to follow-up in the office next . Pt Condition on Discharge: Good Discharge Disposition: Discharge Home Discharge Instructions DIET: Follow Instructions for: As Tolerated, No Restrictions Activities you can perform: Regular-No Restrictions Other Activity Instructions: Okay to Justyna Crane Jul 08, 2017 15:25
== END 2017-07-08 16:55 | disposition home or self-care (01) | DRG 862 ==
LOC: NEPC 02:01 → NEDA 13:14 → N07B 15:57
PROVIDERS: ADMIT Surgery Trauma Surgery; ATTEND Surgery Trauma Surgery
PROC: 0W9G3ZX Drainage of Peritoneal Cavity, Percutaneous Approach, Diagnostic (ICD-10-PCS; principal; 2017-07-05)
DX: T81.4XXA Infection following a procedure, initial encounter (principal); K65.1 Peritoneal abscess; D64.9 Anemia, unspecified
CPT/HCPCS: 49405; 74177; 78226; 80053; 80076; 81001; 83690; 83735; 85025; 85610; 85730; 87070; 87077; 87186; 87205; 96361; 96374; 96375; 96376; A9537; C1729; C1769; J0131; J1170; J1885; J2250; J2405; J3010; J7030; J7120; Q9967

== ENCOUNTER 2017-07-16 07:36 | Inpatient (IN) | payer MEDICARE ==
[~2017-07-16] VITALS: Ht 165.1 cm; Wt 56.8 kg
[~2017-07-16 07:36] MED LIST changes: +HYDR-3516 PO; -OMPR20CCR PO; +ONDA4TAB7 PO; -PANT20 PO; -PROM25TA5 PO; -ZOFR4TAB3 SL
[2017-07-16 07:47] VITALS: BP 138/66; PULSE 87; RESP 18; TEMP 98.2; O2SAT 98
[2017-07-16] MEDS ORDERED: ESTR42.5V VAGINAL (07:58)
[2017-07-16] MEDS ORDERED: HYDROmorphone HCL PF 1 MG/ML VIAL IVS ONE (08:00)
[2017-07-16] MEDS ORDERED: SODIUM CHLOR 0.9% 1000 ML INJ 1,000 ML IV SCH (08:00)
[2017-07-16] MEDS ORDERED: ONDANSETRON HCL 4 MG/2 ML VIAL IVP ONE (08:00)
[2017-07-16 08:27] LABS: AUTOMATED NEUTROPHIL # 4.9 TH/MM3 (1.8-7.7); BASOPHIL % 0.5 % (0.0-2.0); EOSINOPHIL % 0.6 % (0.0-4.0); HEMO FLAGS DIFF FINAL; LYMPH % 21.8 % (9.0-44.0); LYMPHOCYTE # 1.6 TH/MM3 (1.0-4.8); MEAN CORPUSCULAR HEMOGLOBIN 31.8 PG (27.0-34.0); MEAN CORPUSCULAR HGB CONC 33.9 % (32.0-36.0); MONO % 10.1 % (0.0-8.0); PLATELET COUNT 555 TH/MM3 (150-450); RED BLOOD COUNT 3.94 MIL/MM3 (4.00-5.30); RED CELL DISTRIBUTION WIDTH 14.6 % (11.6-17.2); WHITE BLOOD COUNT 7.3 TH/MM3 (4.0-11.0)
[2017-07-16] MEDS ORDERED: IOHEXOL 350 MG/ML 10 ML VIAL (for RAD DIAG) IVCONTRAST ONE (08:43)
[2017-07-16 08:47] LABS: ALKALINE PHOSPHATASE 127 U/L (45-117); ALT (GPT) 30 U/L (10-53); TOTAL BILIRUBIN ADULT 0.5 MG/DL (0.2-1.0)
[2017-07-16] MEDS: SODIUM CHLORIDE 0.9% FLUSH 10 ML FLUSH IV FLUSH PRN (08:49)
[2017-07-16 09:06] LABS: ANION GAP 10 MEQ/L (5-15); AST (GOT) 25 U/L (15-37); BICARBONATE 23.3 MEQ/L (21.0-32.0); BLOOD UREA NITROGEN 7 MG/DL (7-18); CHLORIDE 101 MEQ/L (98-107); GLOMERULAR FILTRATION RATE 64 ML/MIN (>89); POTASSIUM 3.9 MEQ/L (3.5-5.1); SODIUM (NA) 134 MEQ/L (136-145)
--- NOTE | 2017-07-16 09:12 | RADRPT ---
EXAM DATE/TIME: 07/16/2017 08:37 [facility] COMPARISON: CT ABDOMEN & PELVIS W CONTRAST, July 03, 2017, 4:44. INDICATIONS : Abdominal pain and weakness status post cholecystectomy 2 weeks ago. IV CONTRAST: 92 cc Omnipaque 350 (iohexol) IV ORAL CONTRAST: No oral contrast ingested. RADIATION DOSE: 5.17 CTDIvol (mGy) MEDICAL HISTORY : None SURGICAL HISTORY : Cholecystectomy. ENCOUNTER: Initial ACUITY: 2 weeks PAIN SCALE: 4/10 LOCATION: Right upper quadrant TECHNIQUE: Volumetric scanning of the abdomen and pelvis was performed. Using automated exposure control and ad justment of the mA and/or kV according to patient size, radiation dose was kept as low as reasonably achievable to obtain optimal diagnostic quality images. DICOM format image data is available electro nically for review and comparison. FINDINGS: There is evidence for prior cholecystectomy. The previously seen fluid collection in the gallbla dder fossa has diminished in size measures 2.9 cm, it measured almost 5 cm previously with a few gas bubbles within it. There is less dilatation of the biliary ducts since the prior exam and a biliary s tent is in place with slight pneumobilia. The liver, spleen, pancreas, kidneys, adrenals are unremark able. The rest of the examination has not significantly changed. CONCLUSION: Reduction in size of the fluid and gas collection in gallbladder fossa since the prior exam. Ever Musa MD on July 16, 2017 at 8:59 Board Certified Radiologist. This report was verified electronically.
--- NOTE | 2017-07-16 09:15 | PD ---
HPI Chief Complaint: General Weakness Time Seen by Provider: 07:52 Travel History International Travel<30 days: No Contact w/Intl Traveler<30days: No Traveled to known affect area: No History of Present Illness HPI 66-year-old female arrives to the ER complaining of right upper quadrant abdominal pain. She reports 3 weeks ago having undergone a laparoscopic cholecystectomy done by Dr. Phipps. Postoperatively drainage was performed and the patient was admitted. She went home on amoxicillin. The patient was admitted and the drain was discontinued. The patient saw Dr. Phipps yesterday complaining of right upper quadrant pain. She was started on Levaquin. Overnight the pain became worse and she arrives to the ER describing the same. She did vomit. Zofran was helpful for nausea. She denies fever. The abdominal pain is worse with palpation. PFSH Past Medical History Medical History: Denies Significant Hx Hx Anticoagulant Therapy: No Arthritis: Yes Asthma: No Autoimmune Disease: No Heart Rhythm Problems: No Cancer: No Cardiovascular Problems: No High Cholesterol: No Chemotherapy: No Chest Pain: No Congestive Heart Failure: No COPD: No Cerebrovascular Accident: No Diabetes: No Diminished Hearing: No Endocrine: No GERD: No Glaucoma: No Genitourinary: No Hepatitis: No Hiatal Hernia: No Hypertension: No Immune Disorder: No Kidney Stones: No Musculoskeletal: No Neurologic: No Psychiatric: No Reproductive: No Respiratory: No Migraines: No Radiation Therapy: No Renal Failure: No Seizures: No Sickle Cell Disease: No Sleep Apnea: No Thyroid Disease: No Ulcer: No Tetanus Vaccination: Unknown Menopausal: Yes Past Surgical History Abdominal Surgery: Yes AICD: No Arteriovenous Shunt: No Cardiac Surgery: No Cholecystectomy: Yes Ear Surgery: No Endocrine Surgery: No Eye Surgery: No Genitourinary Surgery: No Gynecologic Surgery: No Hysterectomy: No Insulin Pump: No Joint Replacement: No Oral Surgery: Yes (wisdom teeth removed) Pacemaker: No Thoracic Surgery: No Other Surgery: Yes Social History Alcohol Use: No Tobacco Use: No Substance Use: No Allergies-Medications (Allergen,Severity, Reaction): Coded Allergies: morphine (Verified Allergy, Severe, 07/03/17) HALLUCINATE Reported Meds & Prescriptions Reported Meds & Active Scripts Active Ondansetron Odt 4 Mg Tab 4 Mg PO Q6H PRN Take 1 tab as needed for nausea Reported Estrace Vaginal (Estradiol) 0.01% Cream 1 Appl VAGINAL HS Review of Systems Except as stated in HPI: all other systems reviewed are Neg Physical Exam Narrative GENERAL: 66-year-old female pleasant well-nourished well-developed mild distress secondary to pain SKIN: Warm and dry. HEAD: Atraumatic. Normocephalic. EYES: Pupils equal and round. No scleral icterus. No injection or drainage. ENT: No nasal bleeding or discharge. Mucous membranes pink and moist. NECK: Trachea midline. No JVD. CARDIOVASCULAR: Regular rate and rhythm. RESPIRATORY: No accessory muscle use. Clear to auscultation. Breath sounds equal bilaterally. GASTROINTESTINAL: Soft. tender to palpation right upper quadrant. MUSCULOSKELETAL: Extremities without clubbing, cyanosis, or edema. No obvious deformities. NEUROLOGICAL: Awake and alert. No obvious cranial nerve deficits. Motor grossly within normal limits. Five out of 5 muscle strength in the arms and legs. Normal speech. PSYCHIATRIC: Appropriate mood and affect; insight and judgment normal. Data Data Last Documented VS Vital Signs Date Time Temp Pulse Resp B/P (MAP) Pulse Ox O2 Delivery O2 Flow Rate FiO2 07/16/17 07:47 98.2 87 18 138/66 (90) 98 Vital signs reviewed Orders Orders Complete Blood Count With Diff (07/16/17 08:00) Comprehensive Metabolic Panel (07/16/17 08:00) Lipase (07/16/17 08:00) Lactic Acid (07/16/17 08:00) Ct Abd/Pel W Iv Contrast(Rout) (07/16/17 08:00) Iv Access Insert/Monitor (07/16/17 08:00) Ecg Monitoring (07/16/17 08:00) Oximetry (07/16/17 08:00) Ondansetron Inj (Zofran Inj) (07/16/17 08:00) Sodium Chlor 0.9% 1000 Ml Inj (Ns 1000 M (07/16/17 08:00) Sodium Chloride 0.9% Flush (Ns Flush) (07/16/17 08:00) Hydromorphone Pf Inj (Dilaudid Pf Inj) (07/16/17 08:00) Iohexol 350 Inj (Omnipaque 350 Inj) (07/16/17 08:43) Admit Order (Ed Use Only) (07/16/17 10:12) Labs Laboratory Tests Test 07/16/17 07:50 White Blood Count 7.3 TH/MM3 Red Blood Count 3.94 MIL/MM3 Hemoglobin 12.5 GM/DL Hematocrit 37.0 % Mean Corpuscular Volume 94.0 FL Mean Corpuscular Hemoglobin 31.8 PG Mean Corpuscular Hemoglobin Concent 33.9 % Red Cell Distribution Width 14.6 % Platelet Count 555 TH/MM3 Mean Platelet Volume 7.3 FL Neutrophils (%) (Auto) 67.0 % Lymphocytes (%) (Auto) 21.8 % Monocytes (%) (Auto) 10.1 % Eosinophils (%) (Auto) 0.6 % Basophils (%) (Auto) 0.5 % Neutrophils # (Auto) 4.9 TH/MM3 Lymphocytes # (Auto) 1.6 TH/MM3 Monocytes # (Auto) 0.7 TH/MM3 Eosinophils # (Auto) 0.0 TH/MM3 Basophils # (Auto) 0.0 TH/MM3 CBC Comment DIFF FINAL Differential Comment Blood Urea Nitrogen 7 MG/DL Creatinine 0.88 MG/DL Random Glucose 109 MG/DL Total Protein 7.8 GM/DL Albumin 3.4 GM/DL Calcium Level 9.6 MG/DL Alkaline Phosphatase 127 U/L Aspartate Amino Transf (AST/SGOT) 25 U/L Alanine Aminotransferase (ALT/SGPT) 30 U/L Total Bilirubin 0.5 MG/DL Sodium Level 134 MEQ/L Potassium Level 3.9 MEQ/L Chloride Level 101 MEQ/L Carbon Dioxide Level 23.3 MEQ/L Anion Gap 10 MEQ/L Estimat Glomerular Filtration Rate 64 ML/MIN Lactic Acid Level 2.1 mmol/L Lipase 589 U/L MDM Medical Decision Making Medical Screen Exam Complete: Yes Emergency Medical Condition: Yes Medical Record Reviewed: Yes Differential Diagnosis Constipation, Gastritis, Acute Cholecystitis, Biliary Colic, Pancreatitis, TERRY , Hepatitis, Bowel Obstruction, Cystitis, Mesenteric Ischemia, AAA, Appendicitis , Renal Stone/Hydronephrosis, GERD, perforated viscous Narrative Course CBC & BMP Diagram 07/16/17 07:50 Total Protein 7.8, Albumin 3.4, Calcium Level 9.6, Alkaline Phosphatase 127 H, Aspartate Amino Transf (AST/SGOT) 25, Alanine Aminotransferase (ALT/SGPT) 30, Total Bilirubin 0.5 Lipase 589 Lactic acid 2.1 The case was discussed with the general surgery. Surgical intervention at this time is unnecessary. Admission for GI consultation, IV fluids and pain control. At time of reassessment just prior to admission the patient complained, for the first time for this hospital visit, that over the past couple days she's had intermittent episodes of lightheadedness without chest pain or shortness of breath. These are new and don't appear to coincide with the usage of new medications according to patient. Case was d/w Dr Chaudhry for [facility] [place]. Diagnosis Primary Impression: Pancreatitis Qualified Codes: K85.90 - Acute pancreatitis without necrosis or infection, unspecified Additional Impression: Intermittent lightheadedness Admitting Information Admitting Physician Requests: Emerson Jack MD Jul 16, 2017 09:15
[2017-07-16] MEDS ORDERED: SENNOSIDES 8.6 MG TAB PO PRN (10:15)
[2017-07-16] MEDS ORDERED: NALOXONE HCL 0.4 MG/ML AMP IV PRN (10:15)
[2017-07-16] MEDS ORDERED: LACTULOSE SYRUP 20 GM/30 ML CUP PO PRN (10:15)
[2017-07-16] MEDS ORDERED: BISACODYL 10 MG SUPP RECTAL PRN (10:15)
[2017-07-16] MEDS ORDERED: MAGNESIUM HYDROXIDE SUSP 30 ML CUP PO PRN (10:15)
[2017-07-16] MEDS ORDERED: ACETAMINOPHEN 325 MG TAB PO PRN (10:15)
--- NOTE | 2017-07-16 11:24 | MB ---
cc: JOSE JCHRISTIANAAGUSTÍN GARNER DATE OF CONSULTATION 07/16/[address] Espinoza, emergency room physician REASON FOR CONSULTATION History of recent cholecystectomy and pancreatitis. HISTORY OF PRESENT ILLNESS The patient is a 56 year-old female who is known to me status post cholecystectomy approximately one month ago at [facility] for choledocholithiasis. The patient has a previous history of choledocholithiasis and underwent multiple ERCP's and most recently underwent ERCP and stent placement for treatment of choledocholithiasis. The patient had relief of biliary obstruction symptoms and did present for elective cholecystectomy. This was performed laparoscopically without complication. Postoperatively, she developed some increasing pain and fatigue and was admitted to [facility]. A seroma was drained in the gallbladder fossa that had some colonization of bacteria and this was treated with antibiotics. Once the patient had clinically improved, the drain was discontinued and she was discharged to home on oral antibiotics. Unfortunately, over the last 48-hours, the patient has developed recurrent upper epigastric and back pain which is new. She is able to tolerate a diet. She has no fevers, chills or night sweats. No bowel movements. No diarrhea or constipation. No hematochezia or hematemesis and no other complaints. The patient represented to [facility] with a chief complaint of fatigue and back pain. Evaluation did show an elevated lipase to a level of 589. CT scan and other laboratory values were unremarkable. There is no evidence of any complication on CT or on previous imaging or HIDA scan. General surgery was asked to evaluate the patient. REVIEW OF SYSTEMS A 12-point review of systems was reviewed with the patient and is negative except for the pertinent positives mentioned above in the history of present illness. PAST MEDICAL HISTORY 1. Arthritis 2. Choledocholithiasis as above. PAST SURGICAL HISTORY 1. Cholecystectomy 2. Multiple ERPC's 3. Stent placement as above ALLERGIES MORPHINE MEDICATIONS 1. Augmentin 2. Zofran SOCIAL HISTORY Occasionally uses alcohol. Denies illicit drugs or tobacco use. FAMILY HISTORY Noncontributory PHYSICAL EXAM VITAL SIGNS: Temperature 98.2 degrees, heart rate 87, blood pressure 138/66, O2 saturation 98% on room air. GENERAL: The patient is a well-developed, well-nourished female in no acute distress. HEENT: Head is normocephalic, atraumatic. Pupils round and reactive to light and accommodation. Sclerae is anicteric. Mucous membranes are moist. The oral cavity is clear. NECK: Supple. No JVD. LUNGS: Clear to auscultation breathing. Nonlabored breathing pattern. HEART: Regular rate and rhythm. No murmurs. ABDOMEN: Soft, nondistended. No peritonitis. No rebound tenderness. No Alfonso's sign. Incisions are well healed without complication. EXTREMITIES: No clubbing, cyanosis or edema. BACK: Does have some pain that was non-producible on the back examination. NEUROLOGIC: The patient is awake, alert, oriented, nonfocal peripheral exam. Cranial nerves II through XII are grossly intact. ASSESSMENT AND PLAN The patient is a 66 year-old female well-nourished to me with recurrent pancreatitis with a stent in place and a history of choledocholithiasis. It is unclear of the exact etiology of her pancreatitis. I recommend admission with some empiric antibiotics, pain control, supportive care and gastroenterology consultation. I believe her music educator is Dr. Jenkins. There is no evidence of any surgical complication or any acute surgical process on this patient. Thank you very much for this consultation. We will sign off. We will be available. Please call if we can be of any assistance. MD AKASH Dawson/LENKA /9:54 AM /10:56 AM
--- NOTE | 2017-07-16 11:35 | HHI.HP ---
[facility]Staff Ad[facility] Diagnosis Pancreatitis; Intermittent Lightheadedness Diagnoses: (1) Abdominal pain Chief Complaint: Abdominal pain Travel History International Travel<30 Days: No Contact w/Intl Traveler <30 Da: No Traveled to Known Affected Are: No History of Present Illness Written by Kate Ferrer, acting as scribe for Dr. Chaudhry on 07/16/17 at 1135. Ms. Knight is a 66-year-old female patient with essentially unremarkable medical history who presented to the ED today with complaints of right upper quadrant abdominal pain. Patient underwent a laparoscopic cholecystectomy on 06/25/[address] Phipps and reportedly was feeling well post procedure and discharged home. A week post-discharge she presented to the hospital with complaints of severe pain to her right upper quadrant. At that time, a seroma was found and drained, patient discharge homed and prescription for PO Amoxicillin. Today patient states she has not felt well since the CT drainage and beginning antibiotics. Dr. Phipps saw the patient in his office yesterday, who reportedly assessed patient with ultrasound and nothing found to be remarkable. Around 0500 this am patient awoke with diaphoresis, nausea and lightheadedness with continued right upper quadrant pain leading to her presentation to the ED. Denies any recent fever, chills, cough, headache, chest pain, shortness of breath, vomiting, diarrhea or dysuria. States she as able to eat a light breakfast this morning without any nausea or vomiting. At this time pain is controlled and nausea resolved with Zofran. Review of Systems Constitutional: COMPLAINS OF: Diaphoretic episodes (lightheadedness) Respiratory: DENIES: Cough Cardiovascular: DENIES: Chest pain, Dyspnea on Exertion Gastrointestinal: COMPLAINS OF: Abdominal pain (right upper quadrant), Nausea, DENIES: Constipation, Diarrhea, Vomiting Neurologic: DENIES: Headache Except as stated in HPI: all other systems reviewed are Neg Past Family Social History Past Medical History Arthritis Choledocholithiasis Past Surgical History Common bile duct stent placed for stones by Dr. Diana. Laparoscopic cholecystectomy by Dr. Phipps Reported Medications Reported Meds & Active Scripts Active Ondansetron Odt 4 Mg Tab 4 Mg PO Q6H PRN Take 1 tab as needed for nausea Reported Estrace Vaginal (Estradiol) 0.01% Cream 1 Appl VAGINAL HS Allergies: Coded Allergies: morphine (Verified Allergy, Severe, 07/03/17) HALLUCINATE Active Ordered Medications Current Medications Medications (Trade) Dose Ordered Sig/Ruthy Route Start Time Stop Time Status Last Admin (NS Flush) 2 ml UNSCH PRN IV FLUSH 07/16/17 08:00 07/16/17 08:49 (Tylenol) 650 mg Q4H PRN PO 07/16/17 10:15 (Heparin Inj) 5,000 units Q8H SQ 07/16/17 11:00 (Tylenol) 650 mg Q6H PRN PO 07/16/17 10:15 (Dilaudid Pf Inj) 0.2 mg Q3H PRN IV 07/16/17 10:15 (Dilaudid Pf Inj) 0.5 mg Q3H PRN IV 07/16/17 10:15 (Narcan Inj) 0.4 mg UNSCH PRN IV 07/16/17 10:15 (Milk Of Magnesia Liq) 30 ml Q12H PRN PO 07/16/17 10:15 (Senokot) 17.2 mg Q12H PRN PO 07/16/17 10:15 (Dulcolax Supp) 10 mg DAILY PRN RECTAL 07/16/17 10:15 (Lactulose Liq) 30 ml DAILY PRN PO 07/16/17 10:15 Family History Maternal family medical history significant for DM. Social History Denies any tobacco use. Admits to occasional alcohol use. Denies any illicit drug use. Physical Exam Vital Signs Vital Signs Date Time Temp Pulse Resp B/P (MAP) Pulse Ox O2 Delivery O2 Flow Rate FiO2 07/16/17 07:47 98.2 87 18 138/66 (90) 98 Physical Exam GENERAL: This is a well-nourished, well-developed female patient lying in bed, in no apparent distress. SKIN: No rashes, ecchymoses or lesions. Warm and dry. HEENT: Atraumatic. Normocephalic. Pupils equal round and reactive. Extraocular motions intact. No scleral icterus. No injection or drainage. Nose without bleeding. Airway patent. NECK: Trachea midline. No JVD or lymphadenopathy. Supple. CARDIOVASCULAR: Regular rate and rhythm without murmurs, gallops, or rubs. RESPIRATORY: Clear to auscultation. Breath sounds equal bilaterally. No wheezes , rales, or rhonchi. GASTROINTESTINAL: Abdomen soft, nondistended. No hepato-splenomegaly, or palpable masses. No guarding. Right upper quadrant tenderness to palpation. MUSCULOSKELETAL: Extremities without clubbing, cyanosis, or edema. No joint tenderness, effusion, or edema noted. NEUROLOGICAL: Awake and alert. Cranial nerves II through XII intact. Motor and sensory grossly within normal limits. Five out of 5 muscle strength in all muscle groups. Normal speech. Laboratory Laboratory Tests Test 07/16/17 07:50 White Blood Count 7.3 Red Blood Count 3.94 Hemoglobin 12.5 Hematocrit 37.0 Mean Corpuscular Volume 94.0 Mean Corpuscular Hemoglobin 31.8 Mean Corpuscular Hemoglobin Concent 33.9 Red Cell Distribution Width 14.6 Platelet Count 555 Mean Platelet Volume 7.3 Neutrophils (%) (Auto) 67.0 Lymphocytes (%) (Auto) 21.8 Monocytes (%) (Auto) 10.1 Eosinophils (%) (Auto) 0.6 Basophils (%) (Auto) 0.5 Neutrophils # (Auto) 4.9 Lymphocytes # (Auto) 1.6 Monocytes # (Auto) 0.7 Eosinophils # (Auto) 0.0 Basophils # (Auto) 0.0 CBC Comment DIFF FINAL Differential Comment Blood Urea Nitrogen 7 Creatinine 0.88 Random Glucose 109 Total Protein 7.8 Albumin 3.4 Calcium Level 9.6 Alkaline Phosphatase 127 Aspartate Amino Transf (AST/SGOT) 25 Alanine Aminotransferase (ALT/SGPT) 30 Total Bilirubin 0.5 Sodium Level 134 Potassium Level 3.9 Chloride Level 101 Carbon Dioxide Level 23.3 Anion Gap 10 Estimat Glomerular Filtration Rate 64 Lactic Acid Level 2.1 Lipase 589 Result Diagram: 07/16/17 0750 07/16/17 0750 Imaging Last Impressions Abdomen/Pelvis CT 07/16/17 0800 Signed Impressions: Service Date/Time: Sunday, July 16, 2017 08:37 - CONCLUSION: Reduction in size of the fluid and gas collection in gallbladder fossa since the prior exam. K. Cliff Shamlou, MD Caprini VTE Risk Assessment Caprini VTE Risk Assessment: Mod/High Risk (score >= 2) Caprini Risk Assessment Model Point Value = 1 Point Value = 2 Point Value = 3 Point Value = 5 Age 41-60 Minor surgery BMI > 25 kg/m2 Swollen legs Varicose veins or History of unexplained or recurrent spontaneous Oral contraceptives or hormone replacement Sepsis (< 1 month) Serious lung disease, including pneumonia (< 1 month) Abnormal pulmonary function Acute myocardial infarction Congestive heart failure (< 1 month) History of inflammatory bowel disease Medical patient at bed rest Age 61-74 Arthroscopic surgery Major open surgery (> 45 min) Laparoscopic surgery (> 45 min) Malignancy Confined to bed (> 72 hours) Immobilizing plaster cast Central venous access Age >= 75 History of VTE Family history of VTE Factor V Leiden Prothrombin [id number] Lupus anticoagulant Anticardiolipin antibodies Elevated serum homocysteine Heparin-induced thrombocytopenia Other congenital or acquired thrombophilia Stroke (< 1 month) Elective arthroplasty Hip, pelvis, or leg fracture Acute spinal cord injury (< 1 month) Prophylaxis Regimen Total Risk Factor Score Risk Level Prophylaxis Regimen 0-1 Low Early ambulation 2 Moderate Order ONE of the following: *Sequential Compression Device (SCD) *Heparin 5000 units SQ BID 3-4 Higher Order ONE of the following medications: *Heparin 5000 units SQ TID *Enoxaparin/Lovenox 40 mg SQ daily (WT < 150 kg, CrCl > 30 mL/min) *Enoxaparin/Lovenox 30 mg SQ daily (WT < 150 kg, CrCl > 10-29 mL/min) *Enoxaparin/Lovenox 30 mg SQ BID (WT < 150 kg, CrCl > 30 mL/min) AND/OR *Sequential Compression Device (SCD) 5 or more Highest Order ONE of the following medications: *Heparin 5000 units SQ TID (Preferred with Epidurals) *Enoxaparin/Lovenox 40 mg SQ daily (WT < 150 kg, CrCl > 30 mL/min) *Enoxaparin/Lovenox 30 mg SQ daily (WT < 150 kg, CrCl > 10-29 mL/min) *Enoxaparin/Lovenox 30 mg SQ BID (WT < 150 kg, CrCl > 30 mL/min) AND *Sequential Compression Device (SCD) Assessment and Plan Assessment and Plan Ms. Knight is a 66-year-old female patient with essentially unremarkable medical history who presented to the ED today with complaints of right upper quadrant abdominal pain. Patient underwent a laparoscopic cholecystectomy on 06/25/[address] Phipps and reportedly was feeling well post procedure and discharged home. A week post-discharge she presented to the hospital with complaints of severe pain to her right upper quadrant. At that time, a right upper quadrant abscess was found and drained, with discharge home and prescription for PO Amoxicillin. Acute pancreatitis, unknown etiology Status post cholecystectomy - Abdomen/Pelvis CT reviewed showing reduction in size of the fluid and gas collection in gallbladder fossa. - Lipase 589 on presentation. - Consult placed to general surgery, Dr. Phipps, appreciate further input and recommendations. - GI consulted, appreciate input. Keep NPO and await further recommendations. - Control pain, Dilaudid IV given in ED. Dilaudid IV PRN available per pain scale. - Control nausea, Zofran PRN. - 1L NS bolus given in ED. DVT Prophylaxis: SCDs/Heparin sq This note was transcribed by cherie Ferrer. I, Dr. Royce Chaudhry personally performed the history, physical exam, and medical decision making; and confirmed the accuracy of the information in the transcribed note. Authenticated by Dr. Royce Chaudhry on 07/16/17 at 14:24. Physician Certification 2 Midnight Certification Type: Admission for Inpatient Services Order for Inpatient Services The services are ordered in accordance with Medicare regulations or non- Medicare payer requirements, as applicable. In the case of services not specified as inpatient-only, they are appropriately provided as inpatient services in accordance with the 2-midnight benchmark. Estimated LOS (days): 2 2 days is the estimated time the patient will need to remain in the hospital, assuming treatment plan goals are met and no additional complications. Post-Hospital Plan: Home Kate Ferrer Jul 16, 2017 11:35 Royce Chaudhry MD Jul 16, 2017 14:24
[2017-07-16 12:06] VITALS: PULSE 82; RESP 15; O2SAT 98
[2017-07-16 16:37] VITALS: BP 127/64; PULSE 97; RESP 18; TEMP 98.1; O2SAT 96
[2017-07-16] MEDS: NS + KCL 20 MEQ INJ 1,000 ML IV SCH (18:08)
[2017-07-16] MEDS: HYDROmorphone HCL PF 1 MG/ML VIAL IV PRN (18:09)
[2017-07-16] MEDS: HEPARIN SODIUM - SQ 10,000 UNITS/ML VIAL SQ SCH ×2 (18:09→19:00)
[2017-07-16 20:00] VITALS: BP 126/69; PULSE 74; RESP 18; TEMP 97.6; O2SAT 98
[2017-07-17] VITALS: BP_SYST 115; BP_SYST 124; BP_DIAS 66; BP_DIAS 68; PULSE 74; PULSE 77; RESP 18; TEMP 98.3; O2SAT 97
[2017-07-17] MEDS: HYDROmorphone HCL PF 1 MG/ML VIAL IV PRN ×2 (00:16→08:55)
[2017-07-17] MEDS: HEPARIN SODIUM - SQ 10,000 UNITS/ML VIAL SQ SCH ×3 (03:50→17:57)
[2017-07-17] MEDS: NS + KCL 20 MEQ INJ 1,000 ML IV SCH ×2 (03:57→12:40)
--- NOTE | 2017-07-17 06:57 | MB ---
cc: YANG FAJARDO M.D. DATE OF CONSULTATION 07/16/2017 DATE OF 1950 REASON FOR REFERRAL Abdominal pain HISTORY OF PRESENT ILLNESS Thank you for the consultation. This is a pleasant 66-year-old lady who has been healthy until recently where she had lap cholecystectomy about 10 days ago. Apparently there was some leak and she had stent placed about a week ago. She did well and she was discharged, but then she started having pain and fever and she came back to the emergency room. The patient's pain was in the midepigastric and right upper quadrant leading her to come to the hospital. She is currently doing better. No nausea or vomiting. REVIEW OF SYSTEMS All 12-points negative except HPI. PAST MEDICAL HISTORY Significant for: 1. Cholelithiasis 2. Arthritis 3. Common bile duct stent was placed by Dr. Cervantes. 4. Cholecystectomy was done by Dr. hPipps. ALLERGIES MORPHINE SOCIAL HISTORY No tobacco, drug or alcohol. FAMILY HISTORY Significant for diabetes. PHYSICAL EXAMINATION Alert, oriented in no acute distress. VITAL SIGNS: Stable. HEENT: Pupils are round and reactive to light. NECK: Supple. CHEST: Clear to auscultation and percussion. CARDIAC: Regular rate and rhythm. ABDOMEN: Soft, moderate tenderness in the midepigastric and right upper quadrant. EXTREMITIES: No edema, clubbing or cyanosis. NEUROLOGIC: Intact. PSYCHOLOGICAL: Appropriate. LABORATORY DATA Normal electrolytes. Normal liver function test. Lipase 589. White count 7.3, hemoglobin 12.5, platelets 555. CT scan showed reduction in the size of fluid and gas collections in the gallbladder fossa. ASSESSMENT/PLAN This is a 66-year-old lady with abdominal pain. The patient had a history of cholecystectomy which was followed by a leak requiring stent placement and stone removal with an ERCP. Currently, the patient is having pain most likely secondary to pancreatitis. It could be irritation from the stent or passing a stone. The patient will need to be on supportive care. Pain management as needed. She will need an ERCP with sphincterotomy and stent removal making sure that there are no more stones. We will continue current care, we will check her lipase and we will follow up with you. MD JORGITO Mir/LENKA /10:51 PM /6:47 AM
[2017-07-17 08:00] VITALS: BP 131/68; PULSE 78; RESP 20; TEMP 98.2; O2SAT 97
[2017-07-17 11:18] LABS: BASOPHIL % 0.8 % (0.0-2.0); EOSINOPHIL # 0.1 TH/MM3 (0-0.4); EOSINOPHIL % 2.7 % (0.0-4.0); HEMATOCRIT 34.6 % (35.0-46.0); HEMO FLAGS DIFF FINAL; LYMPH % 20.7 % (9.0-44.0); MEAN CELL VOLUME 94.9 FL (80.0-100.0); MEAN CORPUSCULAR HEMOGLOBIN 31.4 PG (27.0-34.0); MEAN CORPUSCULAR HGB CONC 33.1 % (32.0-36.0); MONO % 13.6 % (0.0-8.0); NEUT % 62.2 % (16.0-70.0); PLATELET COUNT 503 TH/MM3 (150-450); RED BLOOD COUNT 3.65 MIL/MM3 (4.00-5.30); RED CELL DISTRIBUTION WIDTH 14.7 % (11.6-17.2); WHITE BLOOD COUNT 4.8 TH/MM3 (4.0-11.0)
[2017-07-17 11:52] VITALS: BP 127/74; PULSE 65; RESP 20; TEMP 97.8; O2SAT 98
[2017-07-17 11:53] LABS: ALKALINE PHOSPHATASE 106 U/L (45-117); ALT (GPT) 26 U/L (10-53); ANION GAP 6 MEQ/L (5-15); AST (GOT) 15 U/L (15-37); BICARBONATE 28.5 MEQ/L (21.0-32.0); BLOOD UREA NITROGEN 5 MG/DL (7-18); CHLORIDE 105 MEQ/L (98-107); GLOMERULAR FILTRATION RATE 109 ML/MIN (>89); POTASSIUM 4.1 MEQ/L (3.5-5.1); SODIUM (NA) 139 MEQ/L (136-145); TOTAL BILIRUBIN ADULT 0.3 MG/DL (0.2-1.0)
--- NOTE | 2017-07-17 13:31 | HHI.PR ---
Subjective Remarks Follow up abdominal pain. Patient states that the pain is "the same". Still having nausea as well. Denies chest pain, dyspnea. Objective Vitals Vital Signs Date Time Temp Pulse Resp B/P (MAP) Pulse Ox O2 Delivery O2 Flow Rate FiO2 07/17/17 11:52 97.8 65 20 127/74 (91) 98 07/17/17 08:00 98.2 78 20 131/68 (89) 97 07/17/17 00:00 98.3 77 18 124/66 (85) 97 07/17/17 00:00 98.3 74 18 115/68 (84) 97 07/16/17 20:00 97.6 74 18 126/69 (88) 98 07/16/17 16:37 98.1 97 18 127/64 (85) 96 I/O 07/16/17 07/16/17 07/16/17 07/17/17 07/17/17 07/17/17 06:59 14:59 22:59 06:59 14:59 22:59 Intake Total 1000 ml Balance 1000 ml Intake IV Total 1000 ml # Voids 6 Result Diagram: 07/17/17 1021 07/17/17 1021 Imaging Last Impressions Abdomen/Pelvis CT 07/16/17 0800 Signed Impressions: Service Date/Time: Sunday, July 16, 2017 08:37 - CONCLUSION: Reduction in size of the fluid and gas collection in gallbladder fossa since the prior exam. Ever Musa MD Objective Remarks General: No acute distress. Heart: Regular rate and rhythm. No murmur. Lungs: Clear to auscultation bilaterally. No wheezes, rales, or rhonchi. Breathing is nonlabored. Abdomen: Soft, tender to palpation in the right upper quadrant, nondistended. Extremities: No lower extremity edema. Psych: Alert and oriented. Procedures none Urinary Catheter: No Vascular Central Line Catheter: No A/P Problem List: (1) Abdominal pain ICD Code: R10.9 - Unspecified abdominal pain Status: Acute (2) Pancreatitis ICD Code: K85.90 - Acute pancreatitis without necrosis or infection, unspecified Status: Acute Assessment and Plan 1. Abdominal pain, acute pancreatitis: Lipase improving. CT of the abdomen/ pelvis shows reduction in size of the fluid and gas collection in the gallbladder fossa. Appreciate GI recommendations. Patient will need ERCP for stent removal. 2. DVT prophylaxis: SCDs, heparin. Problem Qualifiers (1) Pancreatitis: Qualified Codes: K85.90 - Acute pancreatitis without necrosis or infection, unspecified Royce Chaudhry MD Jul 17, 2017 13:31
[2017-07-17] MEDS: ONDANSETRON HCL 4 MG/2 ML VIAL IV PUSH PRN (14:55)
[2017-07-17 16:00] VITALS: BP 142/78; PULSE 78; RESP 17; TEMP 97.9; O2SAT 98
[2017-07-17] MEDS: ACETAMINOPHEN 325 MG TAB PO PRN (19:31)
[2017-07-17 20:00] VITALS: BP 126/70; PULSE 75; RESP 20; TEMP 98.5; O2SAT 96
[2017-07-18] VITALS: BP 133/70; PULSE 67; RESP 20; TEMP 98.6; O2SAT 97
[2017-07-18] MEDS: NS + KCL 20 MEQ INJ 1,000 ML IV SCH (02:40)
[2017-07-18] MEDS: HEPARIN SODIUM - SQ 10,000 UNITS/ML VIAL SQ SCH ×3 (02:42→18:04)
[2017-07-18 04:00] VITALS: BP 138/70; PULSE 70; RESP 20; TEMP 98.7; O2SAT 97
[2017-07-18 08:00] VITALS: BP 124/71; PULSE 74; RESP 16; TEMP 98; O2SAT 97
--- NOTE | 2017-07-18 08:17 | HHI.GIFU ---
Subjective Remarks Resting in bed. Denies fever, chills. She has RUQ tenderness- the same. Reports that she had her drain removed about a week ago. (Louisa Fuentes) Objective Vitals I&O Vital Signs Date Time Temp Pulse Resp B/P (MAP) Pulse Ox O2 Delivery O2 Flow Rate FiO2 07/18/17 04:00 98.7 70 20 138/70 (92) 97 07/18/17 00:00 98.6 67 20 133/70 (91) 97 07/17/17 20:00 98.5 75 20 126/70 (88) 96 07/17/17 16:00 97.9 78 17 142/78 (99) 98 07/17/17 11:52 97.8 65 20 127/74 (91) 98 I/O 07/17/17 07/17/17 07/17/17 07/18/17 07/18/17 07/18/17 07:00 15:00 23:00 07:00 15:00 23:00 Intake Total 1240 ml 863 ml Balance 1240 ml 863 ml Intake Oral 240 ml IV Total 1000 ml 863 ml Laboratory Laboratory Tests Test 07/17/17 10:21 White Blood Count 4.8 Red Blood Count 3.65 Hemoglobin 11.5 Hematocrit 34.6 Mean Corpuscular Volume 94.9 Mean Corpuscular Hemoglobin 31.4 Mean Corpuscular Hemoglobin Concent 33.1 Red Cell Distribution Width 14.7 Platelet Count 503 Mean Platelet Volume 7.0 Neutrophils (%) (Auto) 62.2 Lymphocytes (%) (Auto) 20.7 Monocytes (%) (Auto) 13.6 Eosinophils (%) (Auto) 2.7 Basophils (%) (Auto) 0.8 Neutrophils # (Auto) 3.0 Lymphocytes # (Auto) 1.0 Monocytes # (Auto) 0.7 Eosinophils # (Auto) 0.1 Basophils # (Auto) 0.0 CBC Comment DIFF FINAL Differential Comment Blood Urea Nitrogen 5 Creatinine 0.56 Random Glucose 98 Total Protein 6.3 Albumin 2.9 Calcium Level 8.2 Alkaline Phosphatase 106 Aspartate Amino Transf (AST/SGOT) 15 Alanine Aminotransferase (ALT/SGPT) 26 Total Bilirubin 0.3 Sodium Level 139 Potassium Level 4.1 Chloride Level 105 Carbon Dioxide Level 28.5 Anion Gap 6 Estimat Glomerular Filtration Rate 109 Lipase 86 Imaging Last Impressions Abdomen/Pelvis CT 07/16/17 0800 Signed Impressions: Service Date/Time: Sunday, July 16, 2017 08:37 - CONCLUSION: Reduction in size of the fluid and gas collection in gallbladder fossa since the prior exam. Ever Musa MD Physical Exam HEENT: Normocephalic; atraumatic; no jaundice. CHEST: CTA CARDIAC: RRR ABDOMEN: Soft, nondistended, RUQ tenderness; no hepatosplenomegaly; bowel sounds are present in all four quadrants. EXTREMITIES: No clubbing, cyanosis, or edema. SKIN: Normal; no rash; no jaundice. SIGNAL WORKER: No focal deficits; alert and oriented times three. (Louisa Fuentes) Assessment and Plan Plan ASSESSMENT: - RUQ pain. S/P ERCP with sphincterotomy with balloon sweep and stent placement (05/18/17)----> revealed choledocholithiasis, s/p stent placement. S/P laparoscopic cholecystectomy with Dr. Phipps (06/25/17) at [facility]. She was then hospitalized in June and found to have a fluid collection in the gallbladder fosa and underwent CT guided drainage/drain placement (07/05). This was removed a week ago. She returned to the ER for evaluation of persistent RUQ pain. CT Scan abdomen and pelvis (07/16/17)----> Reduction in the size of the fluid and gas collection in gallbladder fossa since prior exam. Her lipase was elevated at 589, but has since normalized 86 (yesterday). Afebrile. Plan will be for ERCP with stent removal- trying to schedule for today in [place]. GS following. PLAN: - Possible ERCP with stent removal today if can be arranged with OR - Obtain consents - NPO - IVF - GS following - Supportive care - Further recommendations to follow based on results of above - Pt seen and examined by Dr. Leigh and myself and this note is written on her behalf (Louisa Fuentes) Physician Comments seen, examined agree with above (Rosa Leigh MD) Louisa Fuentes Jul 18, 2017 08:17 Rosa Leigh MD Jul 18, 2017 19:09
[2017-07-18] MEDS ORDERED: LACTATED RINGER'S 1000 ML IV PRN (11:00)
[2017-07-18] MEDS ORDERED: SODIUM CHLORID 0.9% 500 ML IV PRN (11:00)
[2017-07-18] MEDS ORDERED: INSULIN HUMAN REGULAR 1,000 UNITS/10 ML VIAL SQ PRN (11:00)
[2017-07-18] MEDS ORDERED: METOPROLOL TARTRATE 25 MG TAB PO PRN (11:00)
[2017-07-18] MEDS ORDERED: POVIDONE IODINE 5% (ANTISEPSIS KIT) 4 APPLICATIONS EACH NARE PRN (11:00)
[2017-07-18] MEDS ORDERED: CHLORHEXIDINE GLUCONATE 2 % 1 PACK (2 CLOTHS) TOPICAL PRN (11:00)
[2017-07-18 11:06] LABS: AUTOMATED NEUTROPHIL # 1.8 TH/MM3 (1.8-7.7); BASOPHIL % 1.3 % (0.0-2.0); EOSINOPHIL # 0.1 TH/MM3 (0-0.4); EOSINOPHIL % 3.1 % (0.0-4.0); HEMATOCRIT 35.7 % (35.0-46.0); HEMO FLAGS DIFF FINAL; LYMPH % 32.3 % (9.0-44.0); LYMPHOCYTE # 1.2 TH/MM3 (1.0-4.8); MEAN CELL VOLUME 94.6 FL (80.0-100.0); MEAN CORPUSCULAR HEMOGLOBIN 31.7 PG (27.0-34.0); MEAN CORPUSCULAR HGB CONC 33.5 % (32.0-36.0); MONO % 13.8 % (0.0-8.0); NEUT % 49.5 % (16.0-70.0); PLATELET COUNT 465 TH/MM3 (150-450); RED BLOOD COUNT 3.77 MIL/MM3 (4.00-5.30); RED CELL DISTRIBUTION WIDTH 14.5 % (11.6-17.2); WHITE BLOOD COUNT 3.6 TH/MM3 (4.0-11.0)
[2017-07-18 11:38] LABS: ALT (GPT) 24 U/L (10-53); ANION GAP 7 MEQ/L (5-15); AST (GOT) 13 U/L (15-37); BLOOD UREA NITROGEN 4 MG/DL (7-18); CHLORIDE 105 MEQ/L (98-107); GLOMERULAR FILTRATION RATE 104 ML/MIN (>89); POTASSIUM 3.9 MEQ/L (3.5-5.1); SODIUM (NA) 140 MEQ/L (136-145)
[2017-07-18 11:41] LABS: ALKALINE PHOSPHATASE 107 U/L (45-117); TOTAL BILIRUBIN ADULT 0.2 MG/DL (0.2-1.0)
[2017-07-18 12:00] VITALS: BP 124/72; PULSE 76; RESP 16; TEMP 98; O2SAT 98
--- NOTE | 2017-07-18 13:56 | HHI.PR ---
Subjective Remarks Follow up abdominal pain. Going for ERCP with stent removal today. Abdominal pain is unchanged. Nausea, but no vomiting. Denies chest pain, dyspnea. Objective Vitals Vital Signs Date Time Temp Pulse Resp B/P (MAP) Pulse Ox O2 Delivery O2 Flow Rate FiO2 07/18/17 08:00 98.0 74 16 124/71 (88) 97 07/18/17 04:00 98.7 70 20 138/70 (92) 97 07/18/17 00:00 98.6 67 20 133/70 (91) 97 07/17/17 20:00 98.5 75 20 126/70 (88) 96 07/17/17 16:00 97.9 78 17 142/78 (99) 98 I/O 07/17/17 07/17/17 07/17/17 07/18/17 07/18/17 07/18/17 07:00 15:00 23:00 07:00 15:00 23:00 Intake Total 1240 ml 863 ml Balance 1240 ml 863 ml Intake Oral 240 ml IV Total 1000 ml 863 ml Result Diagram: 07/18/17 1030 07/18/17 1030 Imaging Last Impressions Abdomen/Pelvis CT 07/16/17 0800 Signed Impressions: Service Date/Time: Sunday, July 16, 2017 08:37 - CONCLUSION: Reduction in size of the fluid and gas collection in gallbladder fossa since the prior exam. Ever Musa MD Objective Remarks General: No acute distress. Heart: Regular rate and rhythm. No murmur. Lungs: Clear to auscultation bilaterally. No wheezes, rales, or rhonchi. Breathing is nonlabored. Abdomen: Soft, tender to palpation in the right upper quadrant, nondistended. Extremities: No lower extremity edema. Psych: Alert and oriented. Procedures none Urinary Catheter: No Vascular Central Line Catheter: No A/P Problem List: (1) Abdominal pain ICD Code: R10.9 - Unspecified abdominal pain Status: Acute (2) Pancreatitis ICD Code: K85.90 - Acute pancreatitis without necrosis or infection, unspecified Status: Acute Assessment and Plan 1. Abdominal pain, acute pancreatitis: Lipase improved. CT of the abdomen/ pelvis shows reduction in size of the fluid and gas collection in the gallbladder fossa. Appreciate GI recommendations. ERCP today per GI. 2. DVT prophylaxis: SCDs, heparin. Problem Qualifiers (1) Pancreatitis: Qualified Codes: K85.90 - Acute pancreatitis without necrosis or infection, unspecified Royce Chaudhry MD Jul 18, 2017 13:56
[2017-07-18] MEDS ORDERED: PROPOFOL 200 MG/20 ML AMP IV ONE (16:17)
--- NOTE | 2017-07-18 17:00 | GIPROC ---
[facility] [address] [facility]. [facility], [address] ERCP PROCEDURE REPORT EXAM DATE: 07/18/2017 PATIENT NAME: Donna Knight MR #: [id number] BIRTHDATE: 1950 ATTENDING: Priyank Cervantes MD ORDER #: [id number] WET SILK HANGER: Jeferson Chaves and Inocencio Flores STATUS: inpatient INDICATIONS: The patient is a 66 yr old female here for an ERCP due to abdominal pain of suspected biliary origin and abnormal abdominal CT PROCEDURE PERFORMED: ERCP with stent removal and balloon sweep. MEDICATIONS: None and Per Anesthesia. CONSENT: The patient understands the risks and benefits of the procedure and understands that these risks include, but are not limited to: sedation, allergic reaction, infection, perforation and/or bleeding. Alternative means of evaluation and treatment include, among others: physical exam, x-rays, and/or surgical intervention. The patient elects to proceed with this endoscopic procedure. medical equipment was checked for proper function. Hand hygiene and appropriate measures for infection prevention was taken. After the risks, benefits and alternatives of the procedure were thoroughly explained, Informed was verified, confirmed and timeout was successfully executed by the treatment team. With the patient in left semi-prone position, medications were administered intravenously.The Pentax [id number] was passed from the mouth into the esophagus and further advanced from the esophagus into the stomach. From stomach scope was directed to the second portion of the duodenum. Major papilla was aligned with the duodenoscope. The scope position was confirmed fluoroscopically. Rest of the findings/therapeutics are given below. The scope was then completely withdrawn from the patient and the procedure completed. The pulse, BP, and O2 saturation were monitored and documented by the physician and the nursing staff throughout the entire procedure. The patient was cared for as planned according to standard protocol. The patient was then discharged to recovery in stable condition and with appropriate post procedure care. There was a medium sized periampullary diverticulum. CBD dilated, stent removed. No filling defects. Balloon sweep 11.5 mm balloon. ADVERSE EVENT: There were no complications. IMPRESSIONS: 1. Medium periampullary diverticulum 2. CBD dilated, stent removed. No filling defects. Balloon sweep 11.5 mm balloon RECOMMENDATIONS: Liver enzymes REPEAT EXAM: Return as needed for ERCP Priyank Cervantes MD eSigned: Priyank Cervantes MD 07/18/2017 4:59 PM cc: PATIENT NAME: Donna Knight MR#: [id number]
[2017-07-18] MEDS ORDERED: *PROMETHAZINE 25 MG/ML VIAL PERIprocedural use ONLY ONE (17:10)
[2017-07-18] MEDS ORDERED: *HYDROmorphone PF 1 MG VIAL PERIprocedural Use ONLY ONE (17:18)
--- NOTE | 2017-07-18 17:19 | RADRPT ---
EXAM DATE/TIME: 07/18/2017 16:49 [place] COMPARISON: No previous studies available for comparison. INDICATIONS : ERCP. Removal of stent and evaluation post cholecystectomy. FLUORO TIME: 2.2 minutes IMAGE COUNT: 1 CONTRAST: Instilled by Ordering Physician MEDICAL HISTORY : None. SURGICAL HISTORY : Cholecystectomy. ENCOUNTER: Initial ACUITY: 1 day PAIN SCORE: Non-responsive. LOCATION: Right upper quadrant abdomen FINDINGS: An ERCP was performed by the ordering physician. The images demonstrate a mildly dilated extrahepatic biliary tree. The gallbladder is surgically abse nt. There is some heterogeneous filling debris in the distal CBD. CONCLUSION: ERCP as above. Gustavo Hernandez MD on July 18, 2017 at 17:16 Board Certified Radiologist. This report was verified electronically.
[2017-07-18] MEDS: ONDANSETRON HCL 4 MG/2 ML VIAL IV PUSH PRN (17:20)
[2017-07-18 17:30] VITALS: BP 154/75; PULSE 63; RESP 16; TEMP 97.4; O2SAT 98
[2017-07-18] MEDS ORDERED: DO NOT ADM ANY ANTICOAGULANT DRUGS PRN (17:30)
[2017-07-18] MEDS: HYDROmorphone HCL PF 1 MG/ML VIAL IV PRN (17:46)
[2017-07-18 20:00] VITALS: BP 132/66; PULSE 77; RESP 18; TEMP 97.9; O2SAT 96
[2017-07-18] MEDS: SODIUM CHLORIDE 0.9% FLUSH 10 ML FLUSH IV FLUSH PRN (20:34)
[2017-07-19] VITALS: BP 111/65; PULSE 66; RESP 18; TEMP 98.3; O2SAT 96
[2017-07-19] MEDS: HEPARIN SODIUM - SQ 10,000 UNITS/ML VIAL SQ SCH ×3 (02:50→18:08)
[2017-07-19] MEDS: NS + KCL 20 MEQ INJ 1,000 ML IV SCH ×2 (02:52→09:25)
[2017-07-19 04:00] VITALS: BP 133/65; PULSE 71; RESP 22; TEMP 98.2; O2SAT 98
[2017-07-19 08:00] VITALS: BP 107/76; PULSE 81; RESP 16; TEMP 98.3; O2SAT 97
[2017-07-19 08:54] LABS: ANION GAP 7 MEQ/L (5-15); AST (GOT) 20 U/L (15-37); BICARBONATE 27.4 MEQ/L (21.0-32.0); BLOOD UREA NITROGEN 5 MG/DL (7-18); CHLORIDE 104 MEQ/L (98-107); GLOMERULAR FILTRATION RATE 116 ML/MIN (>89); POTASSIUM 3.9 MEQ/L (3.5-5.1); SODIUM (NA) 138 MEQ/L (136-145)
[2017-07-19 08:55] LABS: ALT (GPT) 24 U/L (10-53)
[2017-07-19 08:57] LABS: ALKALINE PHOSPHATASE 91 U/L (45-117); TOTAL BILIRUBIN ADULT 0.2 MG/DL (0.2-1.0)
[2017-07-19] MEDS: ACETAMINOPHEN 325 MG TAB PO PRN (09:20)
--- NOTE | 2017-07-19 11:24 | HHI.GIFU ---
GI Follow-up Note Consult Follow-up Subjective: Patient laying in bed comfortably, feeling better . No nausea, vomiting, abdominal pain, tolerating diet well .S/p ERCP with stent removal and sweep-no stones ,Periampullary diverticulum Objective: PHYSICAL EXAMINATION: Vitals signs stable No fever Vital Signs Date Time Temp Pulse Resp B/P (MAP) Pulse Ox O2 Delivery O2 Flow Rate FiO2 07/19/17 08:00 98.3 81 16 107/76 (86) 97 07/19/17 04:00 98.2 71 22 133/65 (87) 98 HEENT: Pupils round and reactive to light; normocephalic; atraumatic; no jaundice. Throat is clear. NECK: Neck is supple, no JVD, no lymphadenopathy. CHEST: Chest is clear to auscultation and percussion. CARDIAC: Regular rate and rhythm with no murmur gallop or rubs. ABDOMEN: Soft, nondistended, nontender; no hepatosplenomegaly; bowel sounds are present in all four quadrants. EXTREMITIES: No clubbing, cyanosis, or edema. SKIN: Normal; no rash; no jaundice. HOMEOPATHIC DOCTOR: No focal deficits; alert and oriented times three. Available Data (labs, X- Rays, Procedues) : Laboratory Tests Test 07/18/17 10:30 07/19/17 07:28 White Blood Count 3.6 TH/MM3 Red Blood Count 3.77 MIL/MM3 Hemoglobin 11.9 GM/DL Hematocrit 35.7 % Mean Corpuscular Volume 94.6 FL Mean Corpuscular Hemoglobin 31.7 PG Mean Corpuscular Hemoglobin Concent 33.5 % Red Cell Distribution Width 14.5 % Platelet Count 465 TH/MM3 Mean Platelet Volume 7.5 FL Neutrophils (%) (Auto) 49.5 % Lymphocytes (%) (Auto) 32.3 % Monocytes (%) (Auto) 13.8 % Eosinophils (%) (Auto) 3.1 % Basophils (%) (Auto) 1.3 % Neutrophils # (Auto) 1.8 TH/MM3 Lymphocytes # (Auto) 1.2 TH/MM3 Monocytes # (Auto) 0.5 TH/MM3 Eosinophils # (Auto) 0.1 TH/MM3 Basophils # (Auto) 0.0 TH/MM3 CBC Comment DIFF FINAL Differential Comment Blood Urea Nitrogen 4 MG/DL 5 MG/DL Creatinine 0.58 MG/DL 0.53 MG/DL Random Glucose 94 MG/DL 76 MG/DL Total Protein 6.8 GM/DL 5.9 GM/DL Albumin 3.2 GM/DL 2.9 GM/DL Calcium Level 8.8 MG/DL 8.6 MG/DL Alkaline Phosphatase 107 U/L 91 U/L Aspartate Amino Transf (AST/SGOT) 13 U/L 20 U/L Alanine Aminotransferase (ALT/SGPT) 24 U/L 24 U/L Total Bilirubin 0.2 MG/DL 0.2 MG/DL Sodium Level 140 MEQ/L 138 MEQ/L Potassium Level 3.9 MEQ/L 3.9 MEQ/L Chloride Level 105 MEQ/L 104 MEQ/L Carbon Dioxide Level 28.0 MEQ/L 27.4 MEQ/L Anion Gap 7 MEQ/L 7 MEQ/L Estimat Glomerular Filtration Rate 104 ML/MIN 116 ML/MIN ASSESSMENT/PLAN: pain in ruq - history of cholecystectomy with possible biloma /bile leak-s/p drainage by IR and ercp with stent placement collection in ruq -improved s/p drainage as above biliary stent s/p removal, no CBD stone, periampullary diverticulum Recommendations advance diet if pain better, tolerating diet ok to dc home in pm today fu office 2-4 weeks repeat ruq us in 2 weeks It was a pleasure seeing Donna Knight. Thank you for this consult. Entered by: Rosa Woody MD Jul 19, 2017 11:24
[2017-07-19 12:00] VITALS: BP 106/59; PULSE 81; RESP 16; TEMP 97.9; O2SAT 99
--- NOTE | 2017-07-19 13:12 | HHI.DCPOC ---
Discharge Care Plan Diagnosis: (1) Abdominal pain (2) Pancreatitis Goals to Promote Your Health * To prevent worsening of your condition and complications * To maintain your health at the optimal level Directions to Meet Your Goals Take your medications as prescribed Follow your dietary instruction Follow activity as directed Keep your appointments as scheduled Take your immunizations and boosters as scheduled If your symptoms worsen call your PCP, if no PCP go to Urgent Care Center or Emergency Room Smoking is Dangerous to Your Health. Avoid second hand smoke Call the 24-hour hour crisis hotline for domestic abuse at Royce Chaudhry MD Jul 19, 2017 13:12
--- NOTE | 2017-07-19 13:18 | HHI.DS ---
Discharge Summary Admission Date Jul 16, 2017 at 10:14 Discharge Date: Jul 19, 2017 Admitting Diagnosis Pancreatitis; Intermittent Lightheadedness (1) Abdominal pain ICD Code: R10.9 - Unspecified abdominal pain Status: Acute (2) Pancreatitis ICD Code: K85.90 - Acute pancreatitis without necrosis or infection, unspecified Status: Acute Procedures none Brief History - From Admission Written by Kate Ferrer, acting as scribe for Dr. Chaudhry on 07/16/17 at 1135. Ms. Knight is a 66-year-old female patient with essentially unremarkable medical history who presented to the ED today with complaints of right upper quadrant abdominal pain. Patient underwent a laparoscopic cholecystectomy on 06/25/[address] Phipps and reportedly was feeling well post procedure and discharged home. A week post-discharge she presented to the hospital with complaints of severe pain to her right upper quadrant. At that time, a seroma was found and drained, patient discharge homed and prescription for PO Amoxicillin. Today patient states she has not felt well since the CT drainage and beginning antibiotics. Dr. Phipps saw the patient in his office yesterday, who reportedly assessed patient with ultrasound and nothing found to be remarkable. Around 0500 this am patient awoke with diaphoresis, nausea and lightheadedness with continued right upper quadrant pain leading to her presentation to the ED. Denies any recent fever, chills, cough, headache, chest pain, shortness of breath, vomiting, diarrhea or dysuria. States she as able to eat a light breakfast this morning without any nausea or vomiting. At this time pain is controlled and nausea resolved with Zofran. CBC/BMP: 07/18/17 1030 07/19/17 0728 Significant Findings Laboratory Tests Test 07/17/17 10:21 07/18/17 10:30 07/19/17 07:28 Red Blood Count 3.65 MIL/MM3 (4.00-5.30) 3.77 MIL/MM3 (4.00-5.30) Hemoglobin 11.5 GM/DL (11.6-15.3) Hematocrit 34.6 % (35.0-46.0) Platelet Count 503 TH/MM3 (150-450) 465 TH/MM3 (150-450) Monocytes (%) (Auto) 13.6 % (0.0-8.0) 13.8 % (0.0-8.0) Blood Urea Nitrogen 5 MG/DL (7-18) 4 MG/DL (7-18) 5 MG/DL (7-18) Total Protein 6.3 GM/DL (6.4-8.2) 5.9 GM/DL (6.4-8.2) Albumin 2.9 GM/DL (3.4-5.0) 3.2 GM/DL (3.4-5.0) 2.9 GM/DL (3.4-5.0) Calcium Level 8.2 MG/DL (8.5-10.1) White Blood Count 3.6 TH/MM3 (4.0-11.0) Aspartate Amino Transf (AST/SGOT) 13 U/L (15-37) Imaging Last Impressions GI Procedure 07/18/17 0000 Signed Impressions: Service Date/Time: Tuesday, July 18, 2017 16:49 - CONCLUSION: ERCP as above. Gustavo Hernandez MD Abdomen/Pelvis CT 07/16/17 0800 Signed Impressions: Service Date/Time: Sunday, July 16, 2017 08:37 - CONCLUSION: Reduction in size of the fluid and gas collection in gallbladder fossa since the prior exam. Ever Musa MD PE at Discharge General: No acute distress. Heart: Regular rate and rhythm. No murmur. Lungs: Clear to auscultation bilaterally. No wheezes, rales, or rhonchi. Breathing is nonlabored. Abdomen: Soft, mildly tender to palpation in the right upper quadrant (better than yesterday), nondistended. Extremities: No lower extremity edema. Psych: Alert and oriented. Pt update on day of discharge The patient states that her right upper quadrant abdominal pain has improved. She still has some discomfort in the area, but no longer sharp pain. She has been tolerating a heart healthy diet. She would like to go home today. Hospital Course The patient was admitted for evaluation of abdominal pain and management of acute pancreatitis. Lipase was monitored and decreased throughout the hospitalization. She was continued on IV fluids. General surgery was consulted. Nonoperative management was recommended. Gastroenterology was consulted. Patient had ERCP with stent removal. Her symptoms improved following the procedure. Her diet was advanced. She was cleared for discharge by gastroenterology. Pt Condition on Discharge: Stable Discharge Disposition: Discharge Home Discharge Time: > 30 minutes Discharge Instructions DIET: Follow Instructions for: Heart Healthy Diet Activities you can perform: Regular-No Restrictions Follow up Referrals: Gastroenterology - 2 Weeks PCP Follow-up - 1 Week New Orders: US Abdomen Complete - 2 Weeks Continued Medications: Estradiol Vaginal (Estrace Vaginal) 0.01% Cream 1 APPL VAGINAL HS for Estrogen Supplements, #1 TUBE 0 Refills Ondansetron Odt (Ondansetron Odt) 4 Mg Tab 4 MG PO Q6H PRN for NAUSEA, #15 TAB 2 Refills Take 1 tab as needed for nausea Royce Chaudhry MD Jul 19, 2017 13:18
--- NOTE | 2017-07-19 13:52 | EKG ---
Date Performed: 07/18/2017 Time Performed: 13:00:04 PTAGE: 66 years EKG: ECTOPIC ATRIAL RHYTHM WITH SHORT MD INTERVAL POSSIBLE RIGHT VENTRICULAR HYPERTROPHY MODERAT E ST DEPRESSION ABNORMAL ECG Compared to prior tracing no significant change PREVIOUS TRACING : 04/23/2013 14.47 DOCTOR: Flip Delarosa Interpretating Date/Time 07/19/2017 13:51:15
== END 2017-07-19 19:03 | disposition home or self-care (01) | DRG 440 ==
LOC: NEPE 07:36 → NEDA 10:14 → N05B 12:13
PROVIDERS: ADMIT Family Medicine; ATTEND Family Medicine
PROC: 0F798ZZ Dilation of Common Bile Duct, Via Natural or Artificial Opening Endoscopic (ICD-10-PCS; 2017-07-18)
PROC: 0FPB8DZ Removal of Intraluminal Device from Hepatobiliary Duct, Via Natural or Artificial Opening Endoscopic (ICD-10-PCS; principal; 2017-07-18 15:40)
DX: K85.90 Acute pancreatitis without necrosis or infection, unspecified (principal); M19.90 Unspecified osteoarthritis, unspecified site; Z90.49 Acquired absence of other specified parts of digestive tract
CPT/HCPCS: 74177; 74330; 80053; 83605; 83690; 85025; 93005; 96361; 96374; 96375; C1769; J1170; J1644; J2405; J2550; J3480; J7030; Q9967

== ENCOUNTER 2018-04-15 11:14 | Emergency (ER) | payer OTHER, MEDICARE ==
[~2018-04-15] VITALS: Ht 165.1 cm; Wt 60.0 kg
[~2018-04-15 11:14] MED LIST changes: +ESTR42.5V VAGINAL; -HYDR-3516 PO
[2018-04-15 11:18] VITALS: BP 119/65; PULSE 83; RESP 16; TEMP 97.7; O2SAT 99
--- NOTE | 2018-04-15 11:34 | PD ---
HPI Chief Complaint: Abdominal Pain Time Seen by Provider: 11:22 Travel History International Travel<30 days: No Contact w/Intl Traveler<30days: No Traveled to known affect area: No History of Present Illness HPI 67-year-old female with no significant medical history presents to the emergency department for evaluation of an epigastric pressure. Patient states at 530 this morning, she was woken up by a headache. This was accompanied by lightheaded sensation and nausea. Patient states the headache has since resolved however this pressure remains in her epigastrium. Patient has had cholecystectomy with multiple complications and followed but this was last fall 2016. She denies any significant abdominal pain. Denies any chest pain or tightness. She has no difficulty breathing. She has no focal deficits or weakness. Patient does not recall any head trauma. She has not been recently ill. Patient has no other symptoms to report at this time. PFSH Past Medical History Hx Anticoagulant Therapy: No Arthritis: Yes Asthma: No Autoimmune Disease: No Heart Rhythm Problems: No Cancer: No Cardiovascular Problems: No High Cholesterol: No Chemotherapy: No Chest Pain: No Congestive Heart Failure: No COPD: No Cerebrovascular Accident: No Diabetes: No Diminished Hearing: No Endocrine: No GERD: No Glaucoma: No Genitourinary: No Hepatitis: No Hiatal Hernia: No Hypertension: No Immune Disorder: No Kidney Stones: No Musculoskeletal: No Neurologic: No Psychiatric: No Reproductive: No Respiratory: No Migraines: No Radiation Therapy: No Renal Failure: No Seizures: No Sickle Cell Disease: No Sleep Apnea: No Thyroid Disease: No Ulcer: No ?: Not Menopausal: Yes Past Surgical History Abdominal Surgery: No AICD: No Arteriovenous Shunt: No Cardiac Surgery: No Cholecystectomy: Yes Ear Surgery: No Endocrine Surgery: No Eye Surgery: No Genitourinary Surgery: No Gynecologic Surgery: No Hysterectomy: No Insulin Pump: No Joint Replacement: No Oral Surgery: No Pacemaker: No Thoracic Surgery: No Other Surgery: Yes Social History Alcohol Use: No Tobacco Use: No Substance Use: No Allergies-Medications (Allergen,Severity, Reaction): Coded Allergies: morphine (Verified Allergy, Severe, 04/15/18) HALLUCINATE Reported Meds & Prescriptions Reported Meds & Active Scripts Active No Active Prescriptions or Reported Medications Review of Systems Except as stated in HPI: all other systems reviewed are Neg Physical Exam Narrative GENERAL: Well-nourished female patient, ambulatory with a non-ataxic gait, in no acute distress. SKIN: Focused skin assessment warm/dry. HEAD: Atraumatic. Normocephalic. EYES: Pupils equal and round. Reactive. No scleral icterus. No injection or drainage. EOMI ENT: No nasal bleeding or discharge. Mucous membranes pink and moist. NECK: Trachea midline. No JVD. No cervical spine tenderness. No nuchal rigidity. CARDIOVASCULAR: Regular rate and rhythm. No murmur appreciated. RESPIRATORY: No accessory muscle use. Clear to auscultation. Breath sounds equal bilaterally. GASTROINTESTINAL: Abdomen soft, non-tender, nondistended. No rebound tenderness. No guarding. Patient does report an increase in pressure when I palpate her epigastrium but states this is not painful. Hepatic and splenic margins not palpable. MUSCULOSKELETAL: No obvious deformities. No clubbing. No cyanosis. No edema. NEUROLOGICAL: Awake and alert. No obvious cranial nerve deficits. Motor grossly within normal limits. Normal speech. PSYCHIATRIC: Appropriate mood and affect; insight and judgment normal. Data Data Last Documented VS Vital Signs Date Time Temp Pulse Resp B/P (MAP) Pulse Ox O2 Delivery O2 Flow Rate FiO2 04/15/18 12:02 77 18 135/71 (92) 100 Room Air 04/15/18 11:18 97.7 Orders Orders Electrocardiogram (04/15/18 11:31) Ckmb (Isoenzyme) Profile (04/15/18 11:31) Complete Blood Count With Diff (04/15/18 11:31) Comprehensive Metabolic Panel (04/15/18 11:31) Magnesium (Mg) (04/15/18 11:31) Prothrombin Time / Inr (Pt) (04/15/18 11:31) Act Partial Throm Time (Ptt) (04/15/18 11:31) Troponin I (04/15/18 11:31) Lipase (04/15/18 11:31) Ecg Monitoring (04/15/18 11:31) Bilateral Bp Monitoring (04/15/18 11:31) Iv Access Insert/Monitor (04/15/18 11:31) Oximetry (04/15/18 11:31) Oxygen Administration (04/15/18 11:31) Aspirin Chew (Aspirin Chew) (04/15/18 11:45) Sodium Chloride 0.9% Flush (Ns Flush) (04/15/18 11:45) Chest, Pa & Lat (04/15/18 11:31) Lactic Acid (04/15/18 11:31) Sodium Chlor 0.9% 1000 Ml Inj (Ns 1000 M (04/15/18 11:45) Prochlorperazine Inj (Compazine Inj) (04/15/18 11:45) Diphenhydramine Inj (Benadryl Inj) (04/15/18 11:45) Urinalysis - C+S If Indicated (04/15/18 11:46) Ct Thorax/ Chest W Iv Contrast (04/15/18 ) Ct Abd/Pel W Iv Contrast(Rout) (04/15/18 ) Metoclopramide Inj (Reglan Inj) (04/15/18 12:30) CKMB (04/15/18 12:10) CKMB% (04/15/18 12:10) Iohexol 350 Inj (Omnipaque 350 Inj) (04/15/18 14:03) Labs Laboratory Tests Test 04/15/18 11:35 04/15/18 12:10 Urine Color YELLOW Urine Turbidity CLEAR Urine pH 6.5 Urine Specific [place] 1.013 Urine Protein NEG mg/dL Urine Glucose (UA) NEG mg/dL Urine Ketones NEG mg/dL Urine Occult Blood TRACE Urine Nitrite NEG Urine Bilirubin NEG Urine Urobilinogen LESS THAN 2.0 MG/DL Urine Leukocyte Esterase NEG Urine RBC 2 /hpf Urine WBC LESS THAN 1 /hpf Urine Squamous Epithelial Cells 1 /hpf Urine Mucus FEW /lpf Microscopic Urinalysis Comment CULT NOT INDICATED White Blood Count 5.6 TH/MM3 Red Blood Count 4.61 MIL/MM3 Hemoglobin 14.6 GM/DL Hematocrit 43.7 % Mean Corpuscular Volume 94.8 FL Mean Corpuscular Hemoglobin 31.5 PG Mean Corpuscular Hemoglobin Concent 33.3 % Red Cell Distribution Width 14.4 % Platelet Count 303 TH/MM3 Mean Platelet Volume 7.7 FL Neutrophils (%) (Auto) 77.1 % Lymphocytes (%) (Auto) 16.2 % Monocytes (%) (Auto) 6.3 % Eosinophils (%) (Auto) 0.1 % Basophils (%) (Auto) 0.3 % Neutrophils # (Auto) 4.3 TH/MM3 Lymphocytes # (Auto) 0.9 TH/MM3 Monocytes # (Auto) 0.4 TH/MM3 Eosinophils # (Auto) 0.0 TH/MM3 Basophils # (Auto) 0.0 TH/MM3 CBC Comment DIFF FINAL Differential Comment Prothrombin Time 10.0 SEC Prothromb Time International Ratio 1.0 RATIO Activated Partial Thromboplast Time 25.1 SEC Blood Urea Nitrogen 8 MG/DL Creatinine 0.83 MG/DL Random Glucose 115 MG/DL Total Protein 7.9 GM/DL Albumin 4.2 GM/DL Calcium Level 9.4 MG/DL Magnesium Level 2.1 MG/DL Alkaline Phosphatase 66 U/L Aspartate Amino Transf (AST/SGOT) 19 U/L Alanine Aminotransferase (ALT/SGPT) 27 U/L Total Bilirubin 0.4 MG/DL Sodium Level 137 MEQ/L Potassium Level 3.9 MEQ/L Chloride Level 102 MEQ/L Carbon Dioxide Level 25.4 MEQ/L Anion Gap 10 MEQ/L Estimat Glomerular Filtration Rate 69 ML/MIN Lactic Acid Level 2.3 mmol/L Total Creatine Kinase 111 U/L Creatine Kinase MB 1.1 NG/ML Troponin I LESS THAN 0.02 NG/ML Lipase 86 U/L [facility] Medical Decision Making Medical Screen Exam Complete: Yes Emergency Medical Condition: Yes Medical Record Reviewed: Yes Differential Diagnosis GERD versus pancreatitis versus esophageal spasm versus cardiac etiology versus electrolyte abnormality versus gastritis versus gastroenteritis Narrative Course 67-year-old female presents emergency department for evaluation. Patient appears without distress. Her vital signs are stable. Patient does have an increase in pressure when I palpate her epigastrium, however this is not painful. Her abdomen is otherwise benign. EKG is reviewed by my attending physician. Patient is treated for nausea and provided IV fluid normal saline bolus. Laboratory Tests Test 04/15/18 11:35 04/15/18 12:10 Urine Color YELLOW Urine Turbidity CLEAR Urine pH 6.5 Urine Specific [place] 1.013 Urine Protein NEG mg/dL Urine Glucose (UA) NEG mg/dL Urine Ketones NEG mg/dL Urine Occult Blood TRACE Urine Nitrite NEG Urine Bilirubin NEG Urine Urobilinogen LESS THAN 2.0 MG/DL Urine Leukocyte Esterase NEG Urine RBC 2 /hpf Urine WBC LESS THAN 1 /hpf Urine Squamous Epithelial Cells 1 /hpf Urine Mucus FEW /lpf Microscopic Urinalysis Comment CULT NOT INDICATED White Blood Count 5.6 TH/MM3 Red Blood Count 4.61 MIL/MM3 Hemoglobin 14.6 GM/DL Hematocrit 43.7 % Mean Corpuscular Volume 94.8 FL Mean Corpuscular Hemoglobin 31.5 PG Mean Corpuscular Hemoglobin Concent 33.3 % Red Cell Distribution Width 14.4 % Platelet Count 303 TH/MM3 Mean Platelet Volume 7.7 FL Neutrophils (%) (Auto) 77.1 % Lymphocytes (%) (Auto) 16.2 % Monocytes (%) (Auto) 6.3 % Eosinophils (%) (Auto) 0.1 % Basophils (%) (Auto) 0.3 % Neutrophils # (Auto) 4.3 TH/MM3 Lymphocytes # (Auto) 0.9 TH/MM3 Monocytes # (Auto) 0.4 TH/MM3 Eosinophils # (Auto) 0.0 TH/MM3 Basophils # (Auto) 0.0 TH/MM3 CBC Comment DIFF FINAL Differential Comment Prothrombin Time 10.0 SEC Prothromb Time International Ratio 1.0 RATIO Activated Partial Thromboplast Time 25.1 SEC Blood Urea Nitrogen 8 MG/DL Creatinine 0.83 MG/DL Random Glucose 115 MG/DL Total Protein 7.9 GM/DL Albumin 4.2 GM/DL Calcium Level 9.4 MG/DL Magnesium Level 2.1 MG/DL Alkaline Phosphatase 66 U/L Aspartate Amino Transf (AST/SGOT) 19 U/L Alanine Aminotransferase (ALT/SGPT) 27 U/L Total Bilirubin 0.4 MG/DL Sodium Level 137 MEQ/L Potassium Level 3.9 MEQ/L Chloride Level 102 MEQ/L Carbon Dioxide Level 25.4 MEQ/L Anion Gap 10 MEQ/L Estimat Glomerular Filtration Rate 69 ML/MIN Lactic Acid Level 2.3 mmol/L Total Creatine Kinase 111 U/L Creatine Kinase MB 1.1 NG/ML Troponin I LESS THAN 0.02 NG/ML Lipase 86 U/L Last Impressions Chest X-Ray 04/15/18 1131 Signed Impressions: CONCLUSION: 1. No acute intrathoracic abnormality. 2. 15 x 5 mm nodular density projecting over the left upper lobe. I have no pr ior studies for comparison. Differential diagnostic considerations include summ ation artifact from overlying structures versus pulmonary nodule. CT of the [facility] rax is suggested to further evaluate. Chest CT 04/15/18 0000 Signed Impressions: CONCLUSION: Unremarkable study. Abdomen/Pelvis CT 04/15/18 Signed Impressions: CONCLUSION: Essentially unremarkable study. Findings are discussed with my attending physician. There also reviewed with the patient. Patient will be discharged home at this time. She agrees to follow-up with a primary care provider. She will return immediately with any acute worsening symptoms. Diagnosis Primary Impression: Abdominal pain Qualified Codes: R10.13 - Epigastric pain Additional Impressions: Light-headed feeling Nausea Referrals: [facility] Primary Care Physician Patient Instructions: Abdominal Pain (ED), General Instructions Additional Instructions: Clear liquid diet, advance as tolerated Avoid abrasive and acidic foods Follow-up with your primary care provider Return immediately with acute worsening symptoms Med/Other Pt SpecificInfo: Prescription(s) given Scripts Ondansetron Odt (Zofran Odt) 4 Mg Tab 4 MG SL Q6HR Y for Nausea/Vomiting, #15 TAB 0 Refills Prov: Karon Jimenez 04/15/18 Disposition: 01 DISCHARGE HOME Condition: Stable Karon Jimenez Apr 15, 2018 11:34
[2018-04-15] MEDS: diphenhydrAMINE HCL 50 MG/ML VIAL IV PUSH ONE ×2 (11:45→12:49)
[2018-04-15] MEDS ORDERED: SODIUM CHLOR 0.9% 1000 ML INJ 1,000 ML IV ONE (11:45)
[2018-04-15] MEDS ORDERED: SODIUM CHLORIDE 0.9% FLUSH 10 ML FLUSH IVF PRN (11:45)
[2018-04-15] MEDS ORDERED: ASPIRIN 81 MG CHEW TAB PO ONE (11:45)
[2018-04-15] MEDS ORDERED: PROCHLORPERAZINE INJ 10 MG/2 ML VIAL IV PUSH ONE (11:45)
--- NOTE | 2018-04-15 11:58 | RADRPT ---
EXAM DATE: 04/15/2018 11:50 AM EDT AGE/SEX: 67 years / Female INDICATIONS: Lower chest, upper abdomen pain. CLINICAL DATA: This is the patient's initial encounter. Patient reports that signs and symptoms have been present for 1 day and indicates a pain score of 6/10. MEDICAL/SURGICAL HISTORY: None. None. COMPARISON: No prior exams available for comparison. FINDINGS: PA and lateral views of the chest demonstrate an oval-shaped nodular density projecting over the left upper lobe. It measures 15 x 5 mm. Lungs are hyper aerated. No infiltrates or effusions. Heart is no rmal in size. Bony structures are unremarkable. CONCLUSION: 1. No acute intrathoracic abnormality. 2. 15 x 5 mm nodular density projecting over the left upper lobe. I have no prior studies for compar gavin. Differential diagnostic considerations include summation artifact from overlying structures adria sharon pulmonary nodule. CT of the thorax is suggested to further evaluate. Electronically signed by: Jose Whitt MD 04/15/2018 11:57 AM EDT
[2018-04-15 12:02] VITALS: BP 135/71; PULSE 77; RESP 18; O2SAT 100
[2018-04-15 12:18] LABS: AUTOMATED NEUTROPHIL # 4.3 TH/MM3 (1.8-7.7); BASOPHIL % 0.3 % (0.0-2.0); EOSINOPHIL % 0.1 % (0.0-4.0); HEMATOCRIT 43.7 % (35.0-46.0); HEMOGLOBIN 14.6 GM/DL (11.6-15.3); LYMPH % 16.2 % (9.0-44.0); LYMPHOCYTE # 0.9 TH/MM3 (1.0-4.8); MEAN CELL VOLUME 94.8 FL (80.0-100.0); MEAN CORPUSCULAR HEMOGLOBIN 31.5 PG (27.0-34.0); MEAN CORPUSCULAR HGB CONC 33.3 % (32.0-36.0); MEAN PLATELET VOLUME 7.7 FL (7.0-11.0); MONO % 6.3 % (0.0-8.0); MONOCYTE # 0.4 TH/MM3 (0-0.9); NEUT % 77.1 % (16.0-70.0); PLATELET COUNT 303 TH/MM3 (150-450); RED BLOOD COUNT 4.61 MIL/MM3 (4.00-5.30); RED CELL DISTRIBUTION WIDTH 14.4 % (11.6-17.2); WHITE BLOOD COUNT 5.6 TH/MM3 (4.0-11.0)
[2018-04-15] MEDS ORDERED: METOCLOPRAMIDE HCL 10 MG/2 ML VIAL IV PUSH ONE (12:30)
[2018-04-15 12:32] LABS: BILIRUBIN, URINE NEG (NEG); BLOOD, URINE TRACE (NEG); GLUCOSE,URINE NEG (NEG); KETONE, URINE NEG (NEG); MUCUS URINE FEW /lpf (OCC); NITRITE,URINE NEG (NEG); PH, URINE 6.5 (5.0-8.5); SQUAMOUS EPITHELIAL CELL URINE 1 /hpf (0-5); URINE COLOR YELLOW (YELLW/STRAW); URINE LEUKOCYTE ESTERASE NEG (NEG)
[2018-04-15 12:41] LABS: ALBUMIN 4.2 GM/DL (3.4-5.0); ALT (GPT) 27 U/L (10-53); AST (GOT) 19 U/L (15-37); BICARBONATE 25.4 MEQ/L (21.0-32.0); BLOOD UREA NITROGEN 8 MG/DL (7-18); CALCIUM 9.4 MG/DL (8.5-10.1); CHLORIDE 102 MEQ/L (98-107); CREATININE 0.83 MG/DL (0.50-1.00); GLOMERULAR FILTRATION RATE 69 ML/MIN (>89); GLUCOSE,RANDOM 115 MG/DL (74-106); MAGNESIUM 2.1 MG/DL (1.5-2.5); SODIUM (NA) 137 MEQ/L (136-145)
[2018-04-15 12:44] LABS: ALKALINE PHOSPHATASE 66 U/L (45-117); TOTAL BILIRUBIN ADULT 0.4 MG/DL (0.2-1.0); TOTAL PROTEIN 7.9 GM/DL (6.4-8.2); TROPONIN I LESS THAN 0.02 NG/ML (0.02-0.05)
[2018-04-15] MEDS ORDERED: IOHEXOL 350 MG/ML 10 ML VIAL (for RAD DIAG) IVCONTRAST ONE (14:03)
--- NOTE | 2018-04-15 14:39 | RADRPT ---
EXAM DATE: 04/15/2018 1:59 PM EDT AGE/SEX: 67 years / Female INDICATIONS: Lower mid chest pain since this morning. CLINICAL DATA: This is the patient's initial encounter. Patient reports that signs and symptoms have been present for 1 day and indicates a pain score of 4/10. MEDICAL/SURGICAL HISTORY: None. Cholecystectomy. RADIATION DOSE: 8.79 CTDI (mGy) ; Combined studies COMPARISON: No prior exams available for comparison. TECHNIQUE: Multiple contiguous axial images were obtained through the chest during bolus infusion of 100 ml Omnipaque 350 (iohexol) nonionic water-soluble contrast as a cumulative dose for multiple ex ams. Images were obtained in suspended respiration using multiple row detector helical technique. Using automated exposure control and adjustment of the mA and/or kV according to patient size, radiat ion dose was kept as low as reasonably achievable to obtain optimal diagnostic quality images. FINDINGS: The lungs are clear without infiltrate, nodule, or mass. There is no pleural effusion. No appreciab le pathological adenopathy is seen within the mediastinum. There is old fracture of left L1 transvers e process. There is a tiny cyst in the left kidney. There is sclerosis involving the superior endplat e of L1 at the appearance of Schmorl nodes formation with superimposed degenerative change at multipl e levels. CONCLUSION: Unremarkable study. Electronically signed by: Colleen Musa MD 04/15/2018 2:05 PM EDT
--- NOTE | 2018-04-15 14:39 | RADRPT ---
EXAM DATE: 04/15/2018 2:04 PM EDT AGE/SEX: 67 years / Female INDICATIONS: Nausea, abdominal pain since this morning. CLINICAL DATA: This is the patient's initial encounter. Patient reports that signs and symptoms have been present for 1 day and indicates a pain score of 3/10. MEDICAL/SURGICAL HISTORY: None. Cholecystectomy. ORAL CONTRAST: No oral contrast ingested. RADIATION DOSE: 8.79 CTDI (mGy) ; Combined studies COMPARISON: POI, CT ABDOMEN W AND W/O CONTRAST, 02/04/2018. . TECHNIQUE: Multiple contiguous axial images were obtained through the abdomen and pelvis following b olus infusion of 92 ml Omnipaque 350 (iohexol) nonionic water-soluble contrast as a cumulative dose for multiple exams. No oral contrast ingested. Using automated exposure control and adjustment of t he mA and/or kV according to patient size, the radiation dose was kept as low as reasonably achievabl e to obtain optimal diagnostic quality images. FINDINGS: Abdomen CT: The liver, spleen, pancreas, right kidney, adrenals are unremarkable. There is no evidence for any ap preciable pathological adenopathy, free fluid, or bowel obstruction. There is old fracture of left L1 transverse process and there is an area of sclerosis involving the superior endplate of L1 at the ap pearance of Schmorl node formation. There is evidence for prior cholecystectomy and common bile duct measures 1 cm with mild prominence of the pancreatic duct in the head of the pancreas. No definite pa ncreatic mass is seen. There is a tiny cyst in the left kidney. Pelvic CT: There is no evidence for mass, abscess formation, or any significant adenopathy within the pelvis. CONCLUSION: Essentially unremarkable study. Electronically signed by: Colleen Musa MD 04/15/2018 2:15 PM EDT
[2018-04-15] MEDS ORDERED: ZOFR4TAB3 SL (15:18)
--- NOTE | 2018-04-16 15:22 | EKG ---
Date Performed: 04/15/2018 Time Performed: 10:56:36 PTAGE: 67 years EKG: Sinus rhythm WITH SHORT MO INTERVAL POSSIBLE RIGHT VENTRICULAR CONDUCTION DELAY BORDERLINE ECG PREVIOUS TRACING : 07/18/2017 13.00 Since the previous tracing, no significant change noted DOCTOR: Ed Del Toro Interpretating Date/Time 04/16/2018 15:20:48
== END 2018-04-15 15:37 | disposition home or self-care (01) ==
LOC: NEPE 11:14
DX: R10.13 Epigastric pain (principal); R42 Dizziness and giddiness; R11.0 Nausea
CPT/HCPCS: 71046; 71260; 74177; 80053; 81001; 82550; 82552; 83605; 83690; 83735; 84484; 85025; 85610; 85730; 93005; 96374; 99285; J2765; J7030; Q9967; J1200